=== PATIENT | male | born 1995 | race Caucasian/White ===

== ENCOUNTER 2021-02-18 08:06 | Emergency (ER) | payer OTHER, SELFPAY ==
[2021-02-18 08:15] VITALS: BP 149/87; PULSE 73; RESP 20; TEMP 36.7; O2SAT 100
--- NOTE | 2021-02-18 08:24 | ED.URI ---
HPI - URI/Sore Throat General Chief Complaint: Upper Respiratory Infection Stated Complaint: sore throat Time Seen by Provider: 02/18/21 08:34 Source: patient and RN notes reviewed Mode of arrival: ambulatory Limitations: no limitations History of Present Illness HPI Narrative: 26-year-old male presents with concern for sore throat, rhinorrhea, nasal congestion, intermittent cough that started yesterday. Reports a coworker had strep throat last week. He denies any known contact to a Covid positive patient. He denies shortness of breath, body aches, chills, sweats, fever, loss of sense of taste or smell. He denies any [id number] intervention. MD elicited complaint: sore throat Related Data Allergies Allergy/AdvReac Type Severity Reaction Status Date / Time No Known Allergies Allergy Verified 02/18/21 08:27 Review of Systems Review of Systems: Narrative: CONSTITUTIONAL: Denies malaise, chills, sweats, or fever. EYES: Denies visual changes, redness, or discharge. ENT: Reports rhinorrhea, congestion, otalgia and sore throat. CARDIOVASCULAR: Denies chest pain, palpitations, or edema. RESPIRATORY: Reports cough. Denies dyspnea. GASTROINTESTINAL: Denies abdominal pain, nausea, vomiting, diarrhea SKIN: Denies rash or itching. MUSCULOSKELETAL: Denies myalgia. NEUROLOGIC: Denies headache. All systems reviewed & are unremarkable except as noted in HPI and below PMFSH Comments At time of signature, agree with nursing past medical, surgical, social and family history. There is no relevant family history pertinent to the presenting complaint Exam Narrative: Exam Narrative: GENERAL: Well-appearing, well-nourished, and in no acute distress. HEAD: Normocephalic EYES: PERRLA, conjunctivae clear ENT: Nares clear, turbinates erythematous, clear discharge. Mucous membranes moist. TM pearly ferrara with dull light reflex bilaterally; no tragal tenderness. Oropharynx erythematous without lesions. Tonsils not enlarged and without exudate, tonsil stones noted. No drooling, no hoarseness, no trismus, uvula midline. NECK: Supple. No lymphadenopathy CHEST: Clear to auscultation, breath sounds equal. No wheezing, rhonchi, rales, or stridor. No respiratory distress, speaks in full sentences. HEART: Regular rate and rhythm. No murmur heard. SKIN: Warm, dry, no rash. NEURO: Alert and oriented x3. PSYCH: Normal mood and affect Course Course Emergency Course: Patient is aware of diagnosis, understands and agrees to treatment plan. Anticipatory guidance given. Patient agrees to follow-up as directed and is aware of reasons to seek care at the emergency department. Portions of this record may have been created with voice recognition software Vital Signs Vital signs: Vital Signs Temperature 98.1 F 02/18/21 08:15 Pulse Rate 73 02/18/21 08:15 Respiratory Rate 20 02/18/21 08:15 Blood Pressure 149/87 H 02/18/21 08:15 Pulse Oximetry 100 02/18/21 08:15 Temperature 98.1 F 02/18/21 08:15 Pulse Rate 73 02/18/21 08:15 Respiratory Rate 20 02/18/21 08:15 Blood Pressure 149/87 H 02/18/21 08:15 Pulse Oximetry 100 02/18/21 08:15 Reviewed. Pt has been instructed to follow up with his primary care provider within the next week regarding his elevated blood pressure today. MDM - URI/Sore Throat MDM Narrative Medical decision making narrative: Differential diagnosis considered: Noel virus, strep pharyngitis, allergic rhinitis, upper respiratory tract infection, sinusitis, rhinosinusitis, nasopharyngitis. viral pharyngitis, otitis media, otitis externa, pneumonia, bronchitis, viral cough syndrome, viral syndrome, and influenza. Exam findings show no acute concerns or changes; patient is non-toxic appearing and is in no distress. Patient is appropriate for outpatient treatment and follow-up. Lab Data Attestation: I reviewed the patient's lab results. Labs: Strep Screen Presumptive Negative
== END 2021-02-18 08:47 | disposition home or self-care (01) ==
PROVIDERS: Emergency Provider Nurse Practitioner; PCP Family Medicine
DX: J06.9 Acute upper respiratory infection, unspecified (principal)
CPT/HCPCS: 87081; 87880; 99213; G0463

== ENCOUNTER 2021-03-23 17:01 | Emergency (ER) | payer OTHER, SELFPAY ==
[2021-03-23 17:07] VITALS: BP 135/66; PULSE 85; RESP 16; TEMP 37.2; O2SAT 97
[2021-03-23 17:16] VITALS: BP 135/66; PULSE 85; RESP 16; TEMP 37.2; O2SAT 97
--- NOTE | 2021-03-23 17:59 | ED.GENADULT ---
HPI - General Adult General Chief complaint: Urogenital-Male Stated complaint: STD Test Time Seen by Provider: 03/23/21 17:59 Source: patient and RN notes reviewed Mode of arrival: ambulatory Limitations: no limitations History of Present Illness HPI narrative: 26 year old male who presents [facility] with complaints of girlfriend testing positive for Chlamydia and he is here to be tested and treated. He states that he has no symptoms of burning or pain with urination, no abdominal pain or any penile discharge. He states that since he has had unprotected sex with her he needs to be treated for chlamydia. complaint: testing for STD Related Data Allergies Allergy/AdvReac Type Severity Reaction Status Date / Time No Known Allergies Allergy Verified 03/23/21 17:15 Review of Systems Review of Systems: Narrative: CONSTITUTIONAL: Denies fever, chills, or sweats. EYES: Denies visual changes, redness, or discharge. ENT: Denies rhinorrhea, congestion, sore throat, or otalgia. CARDIOVASCULAR: Denies chest pain, palpitations, or edema. RESPIRATORY: Denies cough or dyspnea. GASTROINTESTINAL: Denies abdominal pain, nausea, vomiting, or diarrhea. GENITOURINARY: Denies dysuria or hematuria. SKIN: Denies rash or itching. MUSCULOSKELETAL: Denies back pain, joint pain, or myalgia. NEUROLOGIC: Denies headache, numbness, or weakness. PSYCHIATRIC: Denies anxiety or depression. All systems reviewed & are unremarkable except as noted in HPI and below PMFSH Past Medical History Medical History (Updated 03/23/21 @ 18:18 by Ann Marie Guevara NP) Fractured nose [place]-Schlatter's disease Surgical History Surgical History (Updated 03/27/21 @ 15:24 by Ann Marie Guevara NP) No history of previous surgery Family History Family History (Updated 03/23/21 @ 18:18 by Ann Marie Guevara NP) Other Diabetes mellitus Social History Social History (Updated 03/23/21 @ 18:19 by Ann Marie Guevara NP) Smoking packs per day: 0.5 Smoking cigarettes per day: 10.0 Years smoked: 15 Smoking pack-years: 7.50 Smoking status: Current every day smoker Tobacco type: cigarettes Alcohol intake: current Alcohol use details: social Substance use: current Substance use type: marijuana Living arrangements: with family Gender identity (if verbalized by the patient): Male Comments At time of signature, agree with nursing past medical, surgical, social and family history. There is no relevant family history pertinent to the presenting complaint Exam Narrative: Exam Narrative: GENERAL: Well-appearing, well-nourished, and in no acute distress. HEAD: Normocephalic, atraumatic. EYES: PERRLA and EOMI. ENT: Nares clear, no rhinorrhea or epistaxis. Mucous membranes moist. NECK: Supple.no lymphadenopathy CHEST: Clear to auscultation. No respiratory distress.SAO2 97% ON ROOM AIR HEART: Regular rate and rhythm. No murmur heard. Normal peripheral pulses. ABDOMEN: Soft, nontender, nondistended, normal active bowel sounds.denies any penile drainage or pain with urination. EXTREMITIES: Normal range of motion. No edema. SKIN: Warm, dry, no rash. NEURO: No focal deficits. Alert and oriented x3. Course Vital Signs Vital signs: Vital Signs Temperature 37.2 C 03/23/21 17:07 Pulse Rate 85 03/23/21 17:07 Respiratory Rate 16 03/23/21 17:07 Blood Pressure 135/66 03/23/21 17:07 Pulse Oximetry 97 03/23/21 17:07 Temperature 37.2 C 03/23/21 17:16 Pulse Rate 85 03/23/21 17:16 Respiratory Rate 16 03/23/21 17:16 Blood Pressure 135/66 03/23/21 17:16 Pulse Oximetry 97 03/23/21 17:16 Medical Decision Making MDM Narrative Medical decision making narrative: urine sent to be tested for GC and chlamydia and trichomoniasis Does no want treatment for GC or Trichomoniasis does not feel is necessary, treatment given for Chlamydia as requested.Is agreeable for further treatment if any testing comes back positive. D
== END 2021-03-23 18:20 | disposition home or self-care (01) ==
PROVIDERS: Emergency Provider Registered Nurse
DX: Z20.2 Contact with and (suspected) exposure to infections with a predominantly sexual mode of transmission (principal); F17.210 Nicotine dependence, cigarettes, uncomplicated; M92.529 Juvenile osteochondrosis of tibia tubercle, unspecified leg
CPT/HCPCS: 87491; 87591; 87661; 99213; G0463

== ENCOUNTER 2021-04-29 12:50 | Emergency (ER) | payer OTHER, SELFPAY ==
[2021-04-29 13:03] VITALS: BP 155/72; PULSE 69; RESP 18; TEMP 37.6; O2SAT 100
--- NOTE | 2021-04-29 13:46 | ED.DENTAL ---
HPI - Dental/Oral General Chief complaint: Dental/Oral Stated complaint: Toothache Time Seen by Provider: 04/29/21 13:46 Source: patient and RN notes reviewed Mode of arrival: ambulatory Limitations: no limitations History of Present Illness HPI Narrative: 26-year-old male presents with concern for right lower dental pain. Reports he has a broken tooth on the right lower side in the left lower side and the right side has began to hurt in the last 24 hours. He reports foul taste in his mouth. He denies fevers, body aches, difficulty breathing, difficulty swallowing. He reports he used salt water rinses. He does not have a dentist or dental insurance. Patient reports he is a cigarette smoker. MD Complaint: tooth pain Related Data Allergies Allergy/AdvReac Type Severity Reaction Status Date / Time No Known Allergies Allergy Verified 04/29/21 13:21 Review of Systems Review of Systems: CONSTITUTIONAL: Denies malaise, chills, sweats, or fever. EYES: Denies visual changes, redness, or discharge. ENT: Denies rhinorrhea, congestion, sinus pain, otalgia or sore throat. Reports right lower dental pain RESPIRATORY: Denies cough or dyspnea. SKIN: Denies rash or itching. MUSCULOSKELETAL: Denies myalgia. NEUROLOGIC: Denies numbness, weakness, or headache. All systems reviewed & are unremarkable except as noted in HPI and below PMFSH Past Medical History Medical History (Updated 04/29/21 @ 13:55 by Debbie Ramos NP) Fractured nose [place]-Schlatter's disease Surgical History Surgical History (Updated 03/27/21 @ 15:24 by Ann Marie Guevara NP) No history of previous surgery Family History Family History (Updated 03/23/21 @ 18:18 by Ann Marie Guevara NP) Other Diabetes mellitus Social History Social History (Updated 03/23/21 @ 18:19 by Ann Marie Guevara NP) Smoking packs per day: 0.5 Smoking cigarettes per day: 10.0 Years smoked: 15 Smoking pack-years: 7.50 Smoking status: Current every day smoker Tobacco type: cigarettes Alcohol intake: current Alcohol use details: social Substance use: current Substance use type: marijuana Gender identity (if verbalized by the patient): Male Comments At time of signature, agree with nursing past medical, surgical, social and family history. There is no relevant family history pertinent to the presenting complaint Exam Narrative: GENERAL: Well-appearing, well-nourished, and in no acute distress. HEAD: Normocephalic, atraumatic. EYES: PERRLA, conjunctivae clear ENT: Nares clears. Mucous membranes moist. Oropharynx without edema, erythema or lesions. Tonsils not enlarged and without exudate. Teeth 32, 17 broken. Erythema and edema surrounding tooth 32 with no periapical abscess noted NECK: Supple. CHEST: No respiratory distress. Speaks in full sentences. HEART: Regular rate and rhythm. SKIN: Warm, dry, no rash. NEURO: Alert and oriented x3. PSYCH: Normal mood and affect Course Course Emergency Course: Patient is aware of diagnosis, understands and agrees to treatment plan. Anticipatory guidance given. Patient agrees to follow-up as directed and is aware of reasons to seek care at the emergency department. Portions of this record may have been created with voice recognition software Vital Signs Vital signs: Vital Signs Temperature 99.6 F 04/29/21 13:03 Pulse Rate 69 04/29/21 13:03 Respiratory Rate 18 04/29/21 13:03 Blood Pressure 155/72 H 04/29/21 13:03 Pulse Oximetry 100 04/29/21 13:03 Temperature 99.6 F 04/29/21 13:03 Pulse Rate 69 04/29/21 13:03 Respiratory Rate 18 04/29/21 13:03 Blood Pressure 155/72 H 04/29/21 13:03 Pulse Oximetry 100 04/29/21 13:03 Reviewed. MDM - Dental/Oral MDM Narrative Medical decision making narrative: Patients pain and complaint coupled with physical findings are consistant with dentalgia. There are no focal signs of space occupying lesions that are compromising to the
== END 2021-04-29 14:05 | disposition home or self-care (01) ==
PROVIDERS: Emergency Provider Nurse Practitioner
DX: K08.89 Other specified disorders of teeth and supporting structures (principal); F17.210 Nicotine dependence, cigarettes, uncomplicated; M92.529 Juvenile osteochondrosis of tibia tubercle, unspecified leg
CPT/HCPCS: 99213; G0463

== ENCOUNTER 2021-05-04 12:10 | Emergency (ER) | payer OTHER, SELFPAY ==
[2021-05-04 12:19] VITALS: BP 143/79; PULSE 64; RESP 18; TEMP 37.1; O2SAT 99
[2021-05-04 14:01] VITALS: BP 141/81; PULSE 64; RESP 18; TEMP 36.3; O2SAT 100
--- NOTE | 2021-05-04 15:15 | ED.GENADULT ---
HPI - General Adult General Chief complaint: Unspecified Stated complaint: rx refill Time Seen by Provider: 05/04/21 14:08 Source: patient and RN notes reviewed Mode of arrival: ambulatory Limitations: no limitations History of Present Illness HPI narrative: Patient is a 26-year-old male who presents to emergency department for evaluation of medication refill of his propanolol patient had incidental finding of elevated blood pressure and notes that he has been off his medication since August he has a follow-up with a new primary care in the next month patient on arrival denies any other complaints or symptoms and would simply like to have his blood pressure medicine refilled Related Data Home Medications Medication Instructions Recorded Confirmed amoxicillin-pot clavulanate tablet 05/04/21 Allergies Allergy/AdvReac Type Severity Reaction Status Date / Time No Known Allergies Allergy Verified 05/04/21 14:03 Review of Systems Review of Systems: All systems reviewed & are unremarkable except as noted in HPI and below PMFSH Past Medical History Medical History Fractured nose [place]-Schlatter's disease Surgical History Surgical History No history of previous surgery Family History Family History (Updated 03/23/21 @ 18:18 by Ann Marie Guevara NP) Other Diabetes mellitus Social History Social History Smoking packs per day: 0.5 Smoking cigarettes per day: 10.0 Years smoked: 15 Smoking pack-years: 7.50 Smoking status: Current every day smoker Tobacco type: cigarettes Alcohol intake: current Alcohol use details: social Substance use: current Substance use type: marijuana Gender identity (if verbalized by the patient): Male Sexual Orientation (if Verbalized by the Patient): Straight or Heterosexual Exam Narrative: GENERAL: Well-appearing, well-nourished, and in no acute distress. HEAD: Normocephalic, atraumatic. EYES: PERRLA and EOMI. ENT: Nares clear, no rhinorrhea or epistaxis. Mucous membranes moist. CHEST: Clear to auscultation. No respiratory distress. No wheezes rales or rhonchi HEART: Regular rate and rhythm. No murmur heard. EXTREMITIES: Normal range of motion. No edema. SKIN: Warm, dry, no rash. NEURO: No focal deficits. Alert and oriented x3. Cranial nerves II through XII grossly intact PSYCH: Normal mood and affect. Course Course Emergency Course: Patient will have his medication refilled advised to follow with primary care given reasons to return felt appropriate for outpatient reevaluation ABCs and vital signs intact and stable Vital Signs Vital signs: Vital Signs Temperature 98.7 F 05/04/21 12:19 Pulse Rate 64 05/04/21 12:19 Respiratory Rate 18 05/04/21 12:19 Blood Pressure 143/79 H 05/04/21 12:19 Pulse Oximetry 99 05/04/21 12:19 Temperature 97.4 F L 05/04/21 14:01 Pulse Rate 64 05/04/21 14:01 Respiratory Rate 18 05/04/21 14:01 Blood Pressure 141/81 H 05/04/21 14:01 Pulse Oximetry 100 05/04/21 14:01 Medical Decision Making MDM Narrative Medical decision making narrative: Patient in the room in no distress aware of case findings treatment plan and diagnosis agreeing to follow-up as instructed or to return if symptoms worsen or concerns Vital Signs Vital Signs: Vital Signs Temperature 98.7 F 05/04/21 12:19 Pulse Rate 64 05/04/21 12:19 Respiratory Rate 18 05/04/21 12:19 Blood Pressure 143/79 H 05/04/21 12:19 Pulse Oximetry 99 05/04/21 12:19 Temperature 97.4 F L 05/04/21 14:01 Pulse Rate 64 05/04/21 14:01 Respiratory Rate 18 05/04/21 14:01 Blood Pressure 141/81 H 05/04/21 14:01 Pulse Oximetry 100 05/04/21 14:01 Discharge Plan Discharge Clinical Impression: Medication refill Patient Dispositio
== END 2021-05-04 15:40 | disposition home or self-care (01) ==
PROVIDERS: Emergency Provider Emergency Medicine
DX: I10 Essential (primary) hypertension (principal)
CPT/HCPCS: 99281

== ENCOUNTER 2023-04-08 11:26 | Emergency (ER) | payer BC, SELFPAY ==
[2023-04-08 11:34] VITALS: BP 129/79; PULSE 93; RESP 18; TEMP 36.8; O2SAT 99
--- NOTE | 2023-04-08 11:43 | ED.SKABFB ---
HPI - Skin/Abscess/Foreign Bdy General Chief complaint: Skin/Abscess/Foreign Body Stated complaint: Insect Bite/Right Leg Source: patient and RN notes reviewed History of Present Illness HPI narrative: 28 yo M presents to urgent care with complaints of a red, tender, area to his right lower leg x 2 days. Pt denies knowing where this area came from. Pt states he squeezed on it and had some clear drainage from it the other day. States yesterday, his calf had a larger area of redness, the size of his hand, but resolved on it's own. Pt also presenting with a small laceration to his right, index, finger that he obtained from a piece of sheet metal yesterday evening. Denies any fevers, chills, or other complaints. Related Data Home Medications Medication Instructions Recorded Confirmed cariprazine 1.5 mg capsule 1.5 mg PO DAILY 04/08/23 04/08/23 (Vraylar) escitalopram oxalate 20 mg tablet 20 mg PO DAILY 04/08/23 04/08/23 Allergies Allergy/AdvReac Type Severity Reaction Status Date / Time No Known Allergies Allergy Verified 05/04/21 14:03 Review of Systems Review of Systems: CONSTITUTIONAL: Denies fever, chills, or sweats. EYES: Denies visual changes, redness, or discharge. ENT: Denies otalgia and sore throat CARDIOVASCULAR: Denies chest pain, palpitations, or edema. RESPIRATORY: Denies cough or dyspnea. GASTROINTESTINAL: Denies abdominal pain, nausea, vomiting, or diarrhea. GENITOURINARY: Denies dysuria or hematuria. SKIN: redness and tenderness to right calf and laceration to right index finger MUSCULOSKELETAL: Denies back pain, joint pain, or myalgia. NEUROLOGIC: Denies headache, numbness, or weakness. Pertinent positives per HPI. [facility] Past Medical History Medical History Fractured nose [place]-Schlatter's disease Surgical History Surgical History No history of previous surgery Family History Family History (Updated 03/23/21 @ 18:18 by Ann Marie Guevara NP) Other Diabetes mellitus Social History Social History Smoking packs per day: 0.5 Smoking cigarettes per day: 10.0 Years smoked: 15 Smoking pack-years: 7.50 Smoking status: Current every day smoker Tobacco type: cigarettes Alcohol intake: current Alcohol use details: social Substance use: current Substance use type: marijuana Living arrangements: with family Gender identity (if verbalized by the patient): Male Sexual Orientation (if Verbalized by the Patient): Straight or Heterosexual Comments At the time of my signature, I reviewed and agree with the nursing past medical, surgical, social, and family history. There is no relevant family history pertinent to the patient complaint. Exam Narrative: GENERAL: This is a well-nourished, well-developed patient, in no apparent distress. HEAD: normocephalic, atraumatic. EYES: Sclera clear/white. Vision is grossly intact. EARS: External ears normal, auditory canals clear and without drainage. Hearing grossly intact. NOSE: External nose normal with no obvious nasal discharge, nares without redness, no rhinorrhea. THROAT: Mucous membranes moist, posterior pharynx clear. NECK: Neck supple, non-tender without lymphadenopathy, masses or thyromegaly. CARDIOVASCULAR: Regular rate RESPIRATORY: No respiratory distress SKIN: 2 cm area of erythrmia to right calf with centralized, dark, scab noted. no drainage. no induration. Pt's right index finger, volar side, with 1.5 cm, clean, linear, laceration; no surrounding erythema or drainage. NEURO: awake, alert, and oriented to person, place and time. There were no obvious focal neurologic abnormalities. EXTREMITIES: No clubbing, cyanosis, or edema. No joint tenderness, effusion, or edema noted. Course Course Level of Care: Express Care Visit Vital S
== END 2023-04-08 11:55 | disposition home or self-care (01) ==
PROVIDERS: Emergency Provider Nurse Practitioner Family; PCP Hospitalist
DX: L03.115 Cellulitis of right lower limb (principal); F17.210 Nicotine dependence, cigarettes, uncomplicated; F12.90 Cannabis use, unspecified, uncomplicated
CPT/HCPCS: 99213; G0463

== ENCOUNTER 2023-12-15 20:07 | Emergency (ER) | payer OTHER, MEDICAID, SELFPAY ==
[2023-12-15 20:11] VITALS: BP 180/100; PULSE 108; RESP 20; TEMP 36.4; O2SAT 99
--- NOTE | 2023-12-16 00:11 | ED.GENADULT ---
HPI - General Adult General Chief complaint: Skin/Abscess/Foreign Body Stated complaint: cyst on the butt cheek Time Seen by Provider: 12/15/23 22:04 History of Present Illness HPI narrative: This is a 28-year-old male presenting with a gluteal abscess. Has been there for 4 days. He was placed on antibiotics but it is not improving. No systemic signs of illness Related Data Home Medications Medication Instructions Recorded Confirmed cariprazine 1.5 mg capsule 1.5 mg PO DAILY 04/08/23 04/08/23 (Vraylar) escitalopram oxalate 20 mg tablet 20 mg PO DAILY 04/08/23 04/08/23 Allergies Allergy/AdvReac Type Severity Reaction Status Date / Time No Known Allergies Allergy Verified 05/04/21 14:03 [facility] Past Medical History Medical History Fractured nose [place]if[place]-Schlatter's disease Surgical History Surgical History No history of previous surgery Family History Family History Other Diabetes mellitus Social History Social History Smoking packs per day: 0.5 Smoking cigarettes per day: 10.0 Years smoked: 15 Smoking pack-years: 7.50 Smoking status: Current every day smoker Tobacco type: cigarettes Alcohol intake: current Alcohol use details: social Substance use: current Substance use type: marijuana Living arrangements: with family Gender identity (if verbalized by the patient): Male Sexual Orientation (if Verbalized by the Patient): Straight or Heterosexual Exam Narrative: APPEARANCE: No apparent distress. Head: atraumatic. EYES: EOMI, NOSE: Atraumatic NECK: Trachea midline RESPIRATORY: No increased rate of breathing CARDIOVASCULAR: RRR, ABDOMINAL: Non-distended MUSCULOSKELETAl: No obvious deformities NEURO: Alert. Moving 4/4 extremities SKIN:: fluctuant mass in the lower left gluteal cheek, no rectal involvement PSYCHIATRIC: Normal affect Course Vital Signs Vital signs: Vital Signs Temperature 97.6 F 12/15/23 20:11 Pulse Rate 108 H 12/15/23 20:11 Respiratory Rate 20 12/15/23 20:11 Blood Pressure 180/100 H 12/15/23 20:11 Pulse Oximetry 99 12/15/23 20:11 Oxygen Delivery Room Air 12/15/23 20:11 Temperature 97.6 F 12/15/23 20:11 Pulse Rate 108 H 12/15/23 20:11 Respiratory Rate 20 12/15/23 20:11 Blood Pressure 180/100 H 12/15/23 20:11 Pulse Oximetry 99 12/15/23 20:11 Oxygen Delivery Room Air 12/15/23 20:11 Procedures Abscess I/D other: Date of Incision: 12/15/23 Time of Incision: 00:13 Side (if applicable): left Local Anesthetic: lidocaine 1% and with epi Technique: incised with #11 blade and probed loculations Amount of fluid expressed (mL): 10 Irrigation: Yes Packing used?: none I&D Results: Pus and Blood Complications: pain Medical Decision Making MDM Narrative Medical decision making narrative: -Course: 28-year-old presenting with a gluteal abscess. No rectal involvement. Abscess was incised and drained. Patient placed on Bactrim and should continue his Keflex. Given return precautions. -DDX includes but is not limited to: Abscess, cellulitis -Co-morbidities complicating care: psychiatric illness -Procedures: complicated some drainage a abscess left gluteal cheek -Shared decision making / Disposition: discharged -RX Bactrim, Motrin Tylenol Vital Signs Vital Signs: Vital Signs Temperature 97.6 F 12/15/23 20:11 Pulse Rate 108 H 12/15/23 20:11 Respiratory Rate 20 12/15/23 20:11 Blood Pressure 180/100 H 12/15/23 20:11 Pulse Oximetry 99 12/15/23 20:11 Oxygen Delivery Room Air 12/15/23 20:11 Temperature 97.6 F 12/15/23 20:11 Pulse Rate 108 H 12/15/23 20:11 Respiratory Rate 20 12/15/23 20:11 B
[2023-12-16 01:03] VITALS: BP 156/106; PULSE 90; RESP 18; O2SAT 100
== END 2023-12-16 01:05 | disposition home or self-care (01) ==
PROVIDERS: Emergency Provider Emergency Medicine; PCP Hospitalist
DX: L02.31 Cutaneous abscess of buttock (principal); F17.210 Nicotine dependence, cigarettes, uncomplicated
CPT/HCPCS: 10060; 99283

== ENCOUNTER 2024-06-30 15:09 | Emergency (ER) | payer BC, SELFPAY ==
[2024-06-30 15:14] VITALS: BP 140/86; PULSE 106; RESP 20; TEMP 37.4; O2SAT 96
--- NOTE | 2024-06-30 15:29 | ED.SKABFB ---
HPI - Skin/Abscess/Foreign Bdy General Chief complaint: Skin/Abscess/Foreign Body Stated complaint: Skin Sore/Left Ankle Time Seen by Provider: 06/30/24 15:27 Source: patient, RN notes reviewed and old records reviewed Mode of arrival: ambulatory Limitations: no limitations History of Present Illness HPI narrative: 29 year old male [facility] with complaints of infected tattoo to his left lateral ankle for the past 2 days. Patient reports that it was a home done tattoo. Patient reports that he has applied cocunut oil and and triple antibiotic ointment to red irritated skin around and on tattoo.Patient reports that site is painful and he has had low grade fevers for which he has taken Advil.. Patient reports that he has had past staph infections. MD complaint: other (infected tattoo) Onset (ago): day(s) (2) Location: LLE (above left ankle) Severity scale (1-10): 5 Treatments prior to arrival: NSAID and other (triple antibiotic ointment and cocunut oil.) Related Data Home Medications Medication Instructions Recorded Confirmed cariprazine 3 mg capsule (Vraylar) mg 07/02/24 cariprazine 3 mg capsule (Vraylar) mg 07/02/24 haloperidol 2 mg tablet mg 07/02/24 Allergies Allergy/AdvReac Type Severity Reaction Status Date / Time No Known Allergies Allergy Verified 05/04/21 14:03 Review of Systems Review of Systems: CONSTITUTIONAL: Denies fever, chills, or sweats. CARDIOVASCULAR: Denies chest pain, palpitations, or edema. RESPIRATORY: Denies cough or dyspnea. GASTROINTESTINAL: Denies abdominal pain, nausea, vomiting SKIN: Reports redness and swelling. Denies purulent drainage, some vesicles noted in tattoo area with no drainage, no fluctuation of tissue noted, tattoo red and small area of surrounding redness with no acute warmth to tissue MUSCULOSKELETAL: Denies myalgia. NEUROLOGIC: Denies headache, numbness All systems reviewed & are unremarkable except as noted in HPI and below PMFSH Past Medical History Medical History (Updated 07/02/24 @ 13:53 by Ann Marie Guevara NP) Anxiety and depression Fractured nose Hypertension Winifred-Schlatter's disease Schizoaffective disorder Surgical History Surgical History No history of previous surgery Family History Family History Other Diabetes mellitus Social History Social History Smoking packs per day: 0.5 Smoking cigarettes per day: 10.0 Years smoked: 15 Smoking pack-years: 7.50 Smoking status: Current every day smoker Tobacco type: cigarettes Alcohol intake: current Alcohol use details: social Substance use: current Substance use type: marijuana Living arrangements: with family Gender identity (if verbalized by the patient): Male Sexual Orientation (if Verbalized by the Patient): Straight or Heterosexual Comments At time of signature, agree with nursing past medical, surgical, social and family history. There is no relevant family history pertinent to the presenting complaint Exam Narrative: GENERAL: Well-appearing, well-nourished, and in no acute distress. HEAD: Normocephalic, atraumatic. EYES: PERRLA and EOMI. ENT: Nares clear, no rhinorrhea or epistaxis. Mucous membranes moist. NECK: Supple. no lymphadenopathy CHEST: Clear to auscultation. No respiratory distress.SAO2 96% on room air HEART: Regular rate and rhythm. No murmur heard. Normal peripheral pulses. ABDOMEN: Soft, nontender, nondistended, normal active bowel sounds. EXTREMITIES: Normal range of motion. No edema. SKIN: Warm, dry. Erythema, induration, tenderness, warmth with area 3cm X 2cm with surrounding redness 0.5 cm,2 versicles noted inside area of tattoo tissue with no fluctuation of tissue no crepitus noted, no drainage NEURO: No focal deficits. Alert and oriented x3. Course Cour
== END 2024-06-30 15:49 | disposition home or self-care (01) ==
PROVIDERS: Emergency Provider Registered Nurse; PCP Hospitalist
DX: L03.116 Cellulitis of left lower limb (principal); I10 Essential (primary) hypertension; M92.529 Juvenile osteochondrosis of tibia tubercle, unspecified leg; F25.9 Schizoaffective disorder, unspecified; F17.210 Nicotine dependence, cigarettes, uncomplicated
CPT/HCPCS: 99213; G0463

== ENCOUNTER 2025-01-30 15:49 | Emergency (ER) | payer BC, SELFPAY ==
--- OUTSIDE RECORDS SUMMARY | 2025-01-30 15:51 | XMS_ITS | Patient Health Record ---
Author Organization [facility] Address [address] [place] [address] Care Team Providers Care Agency Legal Counsel Name Role Phone Graciela Garcia Primary Care Provider Byron Gary Unavailable [phone] Linnette Mcdaniel Unavailable [phone] Vanesa Joseph Unavailable [phone] Allergies No Known Allergies Results Component Value Reference Range Notes 12 Panel Urine Drug Screen Reviewed date:02/15/2024 08:36:25 AM Interpretation: Performing Lab: Notes/Report: THC POS LAINA NEG MOP (OPI) NEG AMP NEG MET NEG BAR NEG BZO NEG MDMA NEG MTD NEG OXY NEG PCP NEG BUP NEG Reason For Referral Reason Client is wanting in formation on rehab facilities that take [place] Medicaid outside of his living area Diagnosis 1 Methamphetamine abus e (F15.10) Diagnosis 2 Opioid use disorder (F11.99) Referral Organization [facility] Referring Provider First Name Graciela Referring Provider Last Name Jose Referring Provider Speciality Psychiatry Referred Provider Specialty Behavioral [facility] Clinical Notes Hank Tomlin 09:08:36 AM >HN PW contacted consumer regarding referral. Consumer is in agreement with referral. HN explained that any possible rehab facilities resources/services will be researched and provided upon receipt. Consumer voiced understanding., Hank Tomlin 02/22/2024 10:20:12 AM >Possible rehab/Medicaid facilities researched on behalf of consumer. Letter with several possible rehab facilities/resources(DRS-list of Rehabs that accept Medicaid in [place], [facility] and [facility] National helpline) mailed to consumer for available services. Case addressed and closed. Referral Priority Routine Medications Medication SIG (Take, Route, Frequency, Duration) Notes Start Date End Date Status buPROPion HCl ER (XL) 300 MG 1 tablet in the morning Orally Once a day for 30 days Active Haloperidol 2 MG 1 tablet at bedtime Orally Once a day for 30 days Active Vraylar 3 MG 1 capsule Orally Onc e a day for 30 days Active Social History Tobacco Use: Social History Observation Description Date Details (start date - stop date) Unknown Sex Assigned At : Social History Observation Description Sex Assigned At Male Dont use, Tobacco Use/Smoking Question Answer Notes Are you a current smoker Additional Findings: Tobacco User e-Cigarette PRAPARE Question Answer Notes Are you a refugee? No What country are you from? [place] Date Completed/Updated: 02/15/2024 What is your current housing situation? I have h ousing Are you worried about losing your housing? Yes What is the highest level of school that you have finished? High school diploma or GED What is your current work situation? Unemployed and seeking work In the past year, have you o r any family members you live with been unable to get any of the following when it was really needed? Check all that apply I do not have problems meeting my needs Has lack of transportation k ept you from medical appointments, meetings, work or from getting things needed for daily living? No How often do you see or talk to people that you care about and feel close to? (For example: talking to friends on the phone, visiting friends or family, going to anabaptist or club meetings) More than 5 times a week How stressed are you? Stress is when someone feels tense, nervous, anxious, or can\t sleep at night because their mind is troubled Somewhat In the past year have you sp ent more than 2 nights in a row in a [facility]cfp, nursing home, longterm center, or juvenile correctional facility? No Do you feel physically and e motionally safe where you currently live? Yes In the past year, have you b een afraid of your partner or ex-partner? No PRAPARE Score: 1 Tobacco Control (Standard) Question Answer Notes Tobacco use: Uses tobacco in other forms Additional Findings: Tobacco user e-cigarette Problems Problem Type SNOMED Code ICD Code Onset Dates Problem Status W/U Status Risk Notes Problem Tobacco user (836221191) Nicotine dependence, unspecified, uncomplicated (F17.200) Active confirmed Problem Generalized anxiety disorder (75758064) Generalized anxiety disorder (F41.1) Active confirmed Problem Mood disorder (64992116) Mood disorder (F39) Active confirmed likely schizoaffective disorder Problem History of psychiatric disorder (753984601) History of posttraumatic stress disorder (PTSD) (Z86.59) Active confirmed Problem Schizoaffective disorder (84542404) Schizoaffective disorder (F25.9) Active confirmed Problem 297968658 Methamphetamine abuse (F15.10) Active confirmed Problem 430384327 Obesity (BMI 30-39.9) (E66.9) Active confirmed Problem Opioid use disorder (9336238750) Opioid use disorder (F11.99) Active confirmed Vital Signs Heart Rate 104 /min 02/15/2024 Temperature 98.4 degrees Fahrenheit 02/15/2024 Respiratory Rate 16 /min 02/15/2024 Blood pressure diastolic 84 mm Hg 02/15/2024 Oximetry 97 % 02/15/2024 Height 69 in 02/15/2024 Blood pressure systolic 160 mm Hg 02/15/2024 Weight 235.0 lbs 02/15/2024 BMI 34.7 kg/m2 02/15/2024 Encounters Encounter Location Date Provider Diagnosis [address] [address] 02/08/2024 Graciela Garcia Opioid use disorder F11.99 ; Schizoaffective disorder F25.9 ; Methamphetamine abuse F15.10 ; Generalized anxiety disorder F41.1 and History of posttraumatic stress disorder (PTSD) Z86.[address] [place] [address] 02/15/2024 Vanesa Joseph Methamphetamine abus e F15.10 ; Schizoaffective disorder F25.9 ; Obesity (BMI 30-39.9) E66.9 ; Nicotine dependence, unspecified, uncomplicated F17.200 and Nutritional counseling Z71.[address] [place] [address] 02/15/2024 Linnette Mcdaniel [address] [place] [address] 03/21/2024 Graciela Sabblut Opioid use disorder F11.99 ; Schizoaffective disorder F25.9 ; Methamphetamine abuse F15.10 ; Generalized anxiety disorder F41.1 and History of posttraumatic stress disorder (PTSD) Z86.[address] [address] 04/25/2024 Graciela Sabblut Opioid use disorder F11.99 ; Schizoaffective disorder F25.9 ; Methamphetamine abuse F15.10 ; Generalized anxiety disorder F41.1 and History of posttraumatic stress disorder (PTSD) Z86.[address] [address] 05/23/2024 Graciela Sabblut Opioid use disorder F11.99 ; Schizoaffective disorder F25.9 ; Methamphetamine abuse F15.10 ; Generalized anxiety disorder F41.1 and History of posttraumatic stress disorder (PTSD) Z86.[address] [address] 03/16/2024 Graciela Sabblut Schizoaffective disorder F25.9 and Opioid use disorder F11.[address] [address] 06/20/2024 Graciela Sabblut Assessments Encounter Date Diagnosis (ICD Code) Assessment Notes Treatment Notes Treatment Clinical Notes Section Notes 02/08/2024 Opioid use disorder (ICD-10 - F11.99) R/O personality disorder with cluster B traits. 02/15/2024 Schizoaffective disorder (ICD-10 - F25.9) Crisis Intervention Team called and met patient in room. 02/15/2024 Methamphetamine abuse (ICD-10 - F15.10) 03/16/2024 Schizoaffective disorder (ICD-10 - F25.9) 03/21/2024 Opioid use disorder (ICD-10 - F11.99) R/O personality disorder with cluster B traits. 04/25/2024 Opioid use disorder (ICD-10 - F11.99) Recommend a combination of 12-step programs, outpatient programs, and psychotherapy to maintain recovery in the outpatient setting. R/O personality disorder with cluster B traits. 05/23/2024 Opioid use disorder (ICD-10 - F11.99) Recommend a combination of 12-step programs, outpatient programs, and psychotherapy to maintain recovery in the outpatient setting. R/O personality disorder with cluster B traits. 05/23/2024 Schizoaffective disorder (ICD-10 - F25.9) Adding small dose of haloperidol for AH and to help with sleep. Increasing bupropion to help wih depression and focus/concentrati on. R/O personality disorder with cluster B traits. 04/25/2024 Schizoaffective disorder (ICD-10 - F25.9) Adding small dose of haloperidol for AH and to help with sleep. Increasing bupropion to help wih depression and focus/concentrati on. R/O personality disorder with cluster B traits. 03/21/2024 Schizoaffective disorder (ICD-10 - F25.9) Client showing behaviors consistent with a manic episode demonstrated by paranoia, poor sleep, hyper-talkativ eness, grandiosity, racing thoughts, risk-taking behaviors and circumstantial ity, but is also actively using meth at this time. Client is encouraged to continue taking medications as prescribed. Vraylar increased from 1.5 mg daily to 3 mg daily. R/O personality disorder with cluster B traits. 03/16/2024 Opioid use disorder (ICD-10 - F11.99) 02/15/2024 Obesity (BMI 30-39.9) (ICD-10 - E66.9) 02/08/2024 Schizoaffective disorder (ICD-10 - F25.9) R/O personality disorder with cluster B traits. 02/08/2024 Methamphetamine abuse (ICD-10 - F15.10) R/O personality disorder with cluster B traits. 02/15/2024 Nicotine dependence, unspecified, uncomplicated (ICD-10 - F17.200) 03/21/2024 Methamphetamine abuse (ICD-10 - F15.10) R/O personality disorder with cluster B traits. 04/25/2024 Methamphetamine abuse (ICD-10 - F15.10) Recommend inpatient or outpatient treatment for methamphetmaine abuse. R/O personality disorder with cluster B traits. 05/23/2024 Methamphetamine abuse (ICD-10 - F15.10) Recommend inpatient or outpatient treatment for methamphetmaine abuse. R/O personality disorder with cluster B traits. 05/23/2024 Generalized anxiety disorder (ICD-10 - F41.1) Take all medications as prescribed. R/O personality disorder with cluster B traits. 04/25/2024 Generalized anxiety disorder (ICD-10 - F41.1) Take all medications as prescribed. R/O personality disorder with cluster B traits. 02/08/2024 Generalized anxiety disorder (ICD-10 - F41.1) R/O personality disorder with cluster B traits. 02/15/2024 Nutritional counseling (ICD-10 - Z71.3) 03/21/2024 Generalized anxiety disorder (ICD-10 - F41.1) R/O personality disorder with cluster B traits. 03/21/2024 History of posttraumatic stress disorder (PTSD) (ICD-10 - Z86.59) R/O personality disorder with cluster B traits. 02/08/2024 History of posttraumatic stress disorder (PTSD) (ICD-10 - Z86.59) R/O personality disorder with cluster B traits. 04/25/2024 History of posttraumatic stress disorder (PTSD) (ICD-10 - Z86.59) R/O personality disorder with cluster B traits. 05/23/2024 History of posttraumatic stress disorder (PTSD) (ICD-10 - Z86.59) R/O personality disorder with cluster B traits. 02/08/2024 Other Prescriptions being resent for third time. If client hasn't picked up and started medications at next visit, need to reevaluate treatment plan. May self-administer medications or be administered own oral medications per [facility] protocols. Provided informed consent with understanding of side effects, adverse effects, risks and benefits as well as alternative treatments as previously discussed and with the above recommended medications & other aspects of the treatment program. Agrees to return sooner if symptoms worsen or suicidal or homicidal ideations occur. R/O personality disorder with cluster B traits. 02/15/2024 Other 02/15/2024 Other Provided case management services to address social determinants of health needs and reduce barriers to health care services. 03/21/2024 Other May self-administer medications or be administered own oral medications per [facility] protocols. Provided informed consent with understanding of side effects, adverse effects, risks and benefits as well as alternative treatments as previously discussed and with the above recommended medications & other aspects of the treatment program. Agrees to return sooner if symptoms worsen or suicidal or homicidal ideations occur. R/O personality disorder with cluster B traits. 04/25/2024 Other May self-administer medications or be administered own oral medications per [facility] protocols. Provided informed consent with understanding of side effects, adverse effects, risks and benefits as well as alternative treatments as previously discussed and with the above recommended medications & other aspects of the treatment program. Agrees to return sooner if symptoms worsen or suicidal or homicidal ideations occur. R/O personality disorder with cluster B traits. 05/23/2024 Other May self-administer medications or be administered own oral medications per [facility] protocols. Provided informed consent with understanding of side effects, adverse effects, risks and benefits as well as alternative treatments as previously discussed and with the above recommended medications & other aspects of the treatment program. Agrees to return sooner if symptoms worsen or suicidal or homicidal ideations occur. R/O personality disorder with cluster B traits. Plan Of Treatment No Information Insurance Providers Payer Name Payer Address Payer Phone Subscriber Number Group Number Insured Name Patient Relationship to Insured Coverage Start Date Coverage End Date MEDICAID [address] [place] [address] [id number] Mary Byron Self - patient is the insured 2 [facility] [address] [place] [address] [id number] Byron Hernandez Self - patient is the insured 2 3 [employer] [address] [address] [id number] Mary Byron Self - patient is the insured 4 Medical (General) History Medical History History ICD Code schizoaffective disorder Surgical History Surgery Date(Month/Year)
--- OUTSIDE RECORDS SUMMARY | 2025-01-30 15:51 | XMS_ITS | Clinical Summary ---
Author Organization [address] Address [address] [place] [address] [place] [address] Care Team Providers Care Catalyst Recovery Operator Name Role Phone No, Physician Primary Care Provider [phone] Allergies No known active allergies Medications albuterol HFA (PROVENTIL HFA,VENTOLIN HFA,PROAIR HFA) 90 mcg/actuation inhalerIndicati ons:Bronchitis with acute wheezing Inhale 2 puffs every 6 (six) hours as needed for wheezing 3 each 4 4 Active buPROPion XL (WELLBUTRIN XL) 150 mg 24 hr tablet Take 1 tablet (150 mg total) by mouth every morning 90 tablet 4 4 Active sulfamethoxazol e-trimethoprim (BACTRIM DS) 800-160 mg per tablet Take 1 tablet by mouth every 12 (twelve) hours 4 Active ARIPiprazole (ABILIFY) 10 mg tablet Take 1 tablet (10 mg total) by mouth daily 4 Active mupirocin (BACTROBAN) 2 % ointment Apply topically 3 (three) times a day 22 g 4 Active Hospital, Clinic, or Other Facility Administered Medication Ordered Dose Route Frequency Start Date End Date Status ipratropium-albuteroL (DUO-NEB) 0.5-2.5 mg/3 mL nebulizer solution 3 mLIndications:Chronic Obstructive Pulmonary Disease with Bronchospasms 3 mL nebu 4 times daily (home health care respiratory therapist) 11/24/2023 Active Active Problems Problem Noted Date Diagnosed Date Opioid use, unspecified with unspecified opioid-induced disorder 12/15/2023 Perineal abscess 12/15/2023 Assessment & Plan (12/29/2023 2:33 PM CDT): Skin infection, unkonwn etiology possible garden variety skin infection vs anal fistula (less likely) Continue with oral antibiotics and follow up one week. Assessment & Plan (12/19/2023 3:27 PM CDT): Area has reduced in size following I&D at [facility] 12/15/2023. Complete antibiotics as discussed. Wound care as discussed. Now feels like multiple abscesses. Referral to general surgeon Assessment & Plan (12/15/2023 5:00 PM CDT): Discussed findings with patient. Start on cephalexin 500 mg b.i.d. times 10 days. Discussed use of Sitz baths; they can be obtained at the pharmacy. Warm compresses or heating pad to area. Tylenol or ibuprofen p.r.n. follow-up if symptoms are not resolving Methamphetamine use disorder, mild 11/24/2023 Assessment & Plan (12/08/2023 3:42 PM CDT): Patient reports chronic use of methamphetamines; recently detox; was in rehab, but left due to worsening mental illness Patient reports no use of methamphetamines in 5 days Encouraged continued cessation; will start bupropion 150 mg Hepatic steatosis 10/18/2023 Chronic hepatitis C without hepatic coma 023 Assessment & Plan (10/28/2023 11:21 AM DRAPERY INSTALLER): Stable, completed treatment, continues to follow with GI for monitoring and will recheck RNA for cure RLS (restless legs syndrome) 10/06/2022 Assessment & Plan (10/06/2022 11:16 AM DRAPERY INSTALLER): Patient reports restless legs, worse while on alprazolam Feels need to move legs, impacts daily activity Will start gabapentin 100 mg t.i.d.; will check ferritin levels today Hepatitis C antibody positive in blood Assessment & Plan (10/06/2022 11:15 AM DRAPERY INSTALLER): Positive hepatitis-C antibody; most recent RNA was indeterminate; recheck hepatitis-C RNA PCR quantitative today Assessment & Plan (05/11/2022 3:09 PM CDT): Antibody positive but RNA neg. Will get our usual blood work and ttreat if he actually has the virus Assessment & Plan (03/09/2022 3:47 PM CDT): Degenerative type cannot be assessed, however patient did have RNA and blood Patient reports he is receiving had a and hep B vaccines in boosters Will refer to GI for treatment Assessment & Plan (12/24/2021 10:13 AM CDT): Reports he had room recent rapid screening testing for in Infectious Diseases sexually transmitted infections; negative all, except positive for hepatitis C antibody Today will run confirmation testing, as well as checking for hepatitis a, hepatitis-B and HIV to determine if patient is able to be treated for hepatitis-C reviewed recent labs, patient has mild elevation of ALT, but no other significant liver inflammation Cluster headaches 12/24/2021 Assessment & Plan (04/19/2023 4:01 PM CDT): No recent headaches at this time Continue to monitor Assessment & Plan (03/09/2022 3:48 PM CDT): Patient reports decreased number of headaches recently Discontinue verapamil; continue sumatriptan 50 mg p.r.n. for severe headaches Assessment & Plan (12/24/2021 10:14 AM CDT): Patient reports regular cluster headaches; may occur several times per week, are nearly daily Given frequency, will start verapamil 240 mg nightly, patient to take every day for prophylactic treatment; sumatriptan 50 mg as needed for severe headaches Class 2 obesity due to exces s calories without serious comorbidity with body mass index (BMI) of 39.0 to 39.9 in adult 06/10/2021 Assessment & Plan (12/19/2023 3:23 PM CDT): BMI 39.14, encourage weight loss Assessment & Plan (12/15/2023 4:59 PM CDT): BMI 38.72, He was counseled on the importance of obtaining a healthy weight and the risks of obesity. Weight loss recommended. Assessment & Plan (04/19/2023 4:01 PM CDT): Stable, no significant changes to wait Encouraged continued work towards weight loss through dietary changes and regular physical activity Assessment & Plan (03/09/2022 3:47 PM CDT): , generally well controlled Encouraged patient continue work on dietary changes, including reduce caloric intake through dietary changes, and increased activity to at least 30 minutes is moderate intensity exercise daily Assessment & Plan (09/11/2021 4:14 PM DRAPERY INSTALLER): Worsening, patient has continued weight gain Encouraged patient to engage in caloric limited diet as well as regular exercise to achieve weight loss Seborrheic dermatitis 06/10/2021 Assessment & Plan (06/10/2021 3:38 PM CDT): Patient has generalized symptoms of flaking and erythema along hairline Topical steroid prescribed Encouraged patient to continue to use antifungal shampoos including Selsun blue and head and shoulders Will continue to monitor for response to therapy Autism spectrum disorder 05/12/2018 Major depressive disorder, s otis episode, severe with anxious distress 05/12/2018 Assessment & Plan (12/08/2023 3:41 PM CDT): Not well controlled; patient has worsening of depression; currently on no medications Patient is has history of depression; does not feel suicidal; no thoughts of hurting self or others However reports worsening symptoms, possible hallucinations as patient reports since of living and a simulation Will refer to Psychiatry Start Abilify 5 mg daily; Wellbutrin 150 mg daily Assessment & Plan (10/28/2023 11:21 AM DRAPERY INSTALLER): Elevated PHQ 9; discussed with patient today; patient reports multiple stressors, difficulty with finding work; currently homeless, patient has jail, currently living with a cousin in couch surfing with family and friends Discussed with patient prior medications, he does not want to restart any medications at this time Will continue to monitor, if no improvement then would recommend re-evaluating medications are adjusting medications Assessment & Plan (04/19/2023 4:01 PM CDT): Has been well controlled for patient Follows with [facility]; good control with current medications Continue Abilify 10 mg daily, Lexapro 20 mg daily, Vraylar 1.5 mg daily Assessment & Plan (03/09/2022 3:47 PM CDT): Stable, well controlled; continue to monitor Assessment & Plan (09/11/2021 4:13 PM DRAPERY INSTALLER): Stable, well controlled; mostly feels bored; patient has no impact to work, but has generalized anhedonia, no interested in starting on game in which he had recently spent 300 dollars on Prozac to 20 mg daily Assessment & Plan (07/28/2021 4:42 PM CDT): Not well controlled, has worsening at apathy which is impacting patient's relationship with friends and family members Will discontinue sertraline; start Prozac 20 mg daily Continue hydroxyzine 25 mg as needed for panic attacks Referral to Psychiatry given difficult to manage symptoms Moderate tobacco use disorder 10/27/2017 Assessment & Plan (10/28/2023 11:21 AM DRAPERY INSTALLER): Stable, patient reports is not currently using cigarettes, vaping Encouraged continued work towards nicotine cessation Assessment & Plan (04/19/2023 4:00 PM CDT): Vapes nicotine products Encouraged continued work on tapering concentration of vape contents Assessment & Plan (09/11/2021 4:13 PM DRAPERY INSTALLER): Stable, not well controlled; patient reports no desire to quit at this time Assessment & Plan (06/10/2021 3:38 PM CDT): Stable, not well controlled, encourage cessation in order to reduce long-term health effects tobacco use Chronic fatigue syndrome 09/24/2016 Overview (01/06/2017): Chronic fatigue Ingrowing great toenail 09/24/2016 Overview (01/06/2017): Ingrown right big toenail Abdominal pain 04/27/2016 Overview (01/06/2017): Continuous severe abdominal pain Assessment & Plan (07/28/2021 4:42 PM CDT): Primarily located in right groin; subcutaneous mass noted; patient is under changes in size Will get ultrasound Tonsillitis 03/23/2016 Overview (01/06/2017): Tonsillitis Acute streptococcal pharyngitis 03/23/2016 Overview (01/06/2017): Strep throat Anxiety 08/14/2015 Overview (01/06/2017): Anxiety Assessment & Plan (04/19/2023 4:01 PM CDT): Managed with depression; continue medications as above Assessment & Plan (06/10/2021 3:38 PM CDT): Patient reports he continues to have generalized anxiety, mostly with episodes of panic attacks Will start sertraline today, continue hydroxyzine 25 mg p.r.n. for anxiety attacks Immunizations Immunization Administration Dates Next Due DTP / HiB 06/21/1995 Hep A, Adult 12/22/2021 Hep B Vaccine 12/22/2021 Hep B, Adolescent or Pediatric 06/21/1995 Influenza, Unspecified 11/24/2023(Deferr ed: Patient Refused),09/05/2023(Deferred: Patient Refused),06/26/2023(Deferred: Patient Refused),04/01/2023(Deferred: Patient Refused),12/24/2021(Deferred: Patient Refused),09/26/2021(Deferred: Patient Refused),09/26/2021(Deferred: Patient Refused),09/09/2021(Deferred: Patient Refused),07/22/2021(Deferred: Patient Refused),06/10/2021(Deferred: Patient Refused),09/26/2020(Deferred: Patient Refused),09/26/2020(Deferred: Patient Refused),09/26/2020(Deferred: Patient Refused),09/26/2020(Deferred: Patient Refused),09/26/2020(Deferred: Patient Refused),04/12/2018(Deferred: Patient Refused),03/09/2018(Deferred: Patient Refused),10/27/2017(Deferred: Patient Refused),10/19/2017(Deferred: Patient Refused),09/27/2017(Deferred: Patient Refused),09/27/2016(Deferred: Patient Refused),09/27/2016(Deferred: Patient Refused),09/26/2016(Deferred: Patient Refused) MMR 06/21/1995 OPV 06/21/1995 Surgical History Surgery Date Site/Laterality Comments TYMPANOSTOMY TUBE PLACEMENT Medical History Medical History Date Comments Anxiety disorder Anxiety Hepatitis C Family History Medical History Relation Name Comments No Known Problems Brother 1 No Known Problems Brother 2 No Known Problems Brother 3 No Known Problems Sister Relation Name Status Comments Brother 1 Alive Brother 2 Alive Brother 3 Alive Father Alive Mother Alive Sister Alive Social History Tobacco Use Types Packs/Day Years Used Date Smoking Tobacco: Every Day Cigarettes Smokeless Tobacco: Current Tobacco Cessation:Ready to Q uit: Not Asked; Counseling Given: Not Answered Comments:Smoking History Packs/day: 3 Cigarettes Alcohol Use Standard Drinks/Week Comments No 0 (1 standard drink = 0.6 oz pur e alcohol) AUDIT-C Answer Date Recorded Q1: How often do you have a drink containing alc ohol? Monthly or less 05/09/2023 Average Number of Drinks Not on file 023 Frequency of Binge Drinking Not on file 04/26 PHQ-2 Answer Date Recorded PHQ-2 Total Score (If total score is 3 or more points, staff should administer the PHQ-9) 2 12/08/2023 PHQ-9 Answer Date Recorded PHQ-9 Total Score 12 12/08/2023 Personal Safety Answer Date Recorded Have you ever been in or are you currently in a harmful physical or emotional relationship or is someone making you feel afraid or unsafe? Denies 07/06/2024 Sex and Gender Information Value Date Recorded Sex Assigned at Not on file Legal Sex Male 9:28 AM DRAPERY INSTALLER Gender Identity Not on file Sexual Orientation Not on file Obstetrics History Last Filed Vital Signs Vital Sign Reading Time Taken Comments Blood Pressure 154/95 07/06/2024 11:30 AM CDT Pulse 97 07/06/2024 11:30 AM CDT Temperature 36.9 C (98.4 F) 07/06/2024 11:30 AM CDT Respiratory Rate 16 07/06/2024 11:30 AM CDT Oxygen Saturation 95% 07/06/2024 11:30 AM CDT Inhaled Oxygen Concentration - - Weight 104.3 kg (230 lb) 07/06/2024 11:30 AM CDT Height 172.7 cm (5' 8 ) 07/06/2024 11:30 AM CDT Body Mass Index 34.97 07/06/2024 11:30 AM CDT Plan of Treatment Health Maintenance Due Date Last Done Comments DTaP/Tdap/Td Vaccine (2 - Tdap) 2005 06/21/1995 Varicella Vaccines (1 of 2 - 13+ 2-dose series) 2007 Regular Well Visit/Exam 18-64 01/28/2012 Pneumococcal vaccine <65 (1 of 2 - PCV) 2013 Depression Screening 12/07/2024 12/08/2023, 12/08/2023, 10/05/2023, Additional history exists Influenza Vaccine (Season Ended) 2025 Hepatitis C Screening Completed 10/18/2023 , 10/18/2023, 10/18/2023, Additional history exists HPV Vaccines Aged Out No longer eligi ble based on patient's age to complete this topic Procedures Procedure Name Priority Date/Time Associated Diagnosis Comments HEPATITIS C RNA, QUANTITATIVE, PCR Routine 10/18/2023 2:16 PM DRAPERY INSTALLER Chronic hepatitis C without hepatic coma (HCC) from Last 3 Months or Most Recently Relevant to Health Maintenance Results * Hepatitis C (HCV) RNA PCR, quantitative Blood (10/18/2023 2:16 PM DRAPERY INSTALLER) HCV RNA result Not Detected MORGAN RUBYELSI MICHAEL (DILSHAD) Comment: The quantifiable range of this assay is 15 IU/mL to 100,000,000 IU/mL (1.18 log IU/mL to 8.00 log IU/mL). Testing was performed by the SYED 6800 HCV Test ([employer] Testing performed at [facility] Current Interpretive Data was last revised on 2021 Testing performed by: [facility], [address] [place]., [address] Blood 10/18/2023 2:16 PM DRAPERY INSTALLER 10/18/2023 8:34 PM DRAPERY INSTALLER Jhoan Busby NP LAB MICROBIOLOGY - GENERAL ORDERABLES Final Result DEYANIRA MICHAEL (DILSHAD) 1 [facility] Department [place] [address] from Last 3 Months or Most Recently Relevant to Health Maintenance Insurance [employer]PA [employer] ACCESS CHOICE ANTH ACCESS CHOICE Member Subscriber Plan / Payer (Ef fective 2021-) Name:Byron Hernandez Relation to Subscriber:Self Name:Byron Hernandez Payer ID:[id number] (NAIC) Type:[employer] Address: [address] [facility] Care Teams Catalyst Recovery Operator Relationship Specialty Start Date End Date No, Physician PCP - General 07/06/24
--- OUTSIDE RECORDS SUMMARY | 2025-01-30 15:51 | XMS_ITS ---
Author Organization [facility] Address [address] [place] [address] Care Team Providers Care Hogshead Press Operator Name Role Phone Graciela Garcia Primary Care Provider [phone] Byron Gary Unavailable [phone] REASON FOR VISIT MH Social History Sex Assigned At : Social History Observation Description Sex Assigned At Male Encounters Encounter Location Date Provider Diagnosis [facility] [address] [place] [address] [place] [address] 07/11/2024 Byron Gary Plan Of Treatment No Information Progress Notes * Ariane HERNANDEZsDOB: 4 (30 yo M)Acc No.[id number]:07/11/2024 UNLOCKED PROGRESS NOTE Patient: Byron AMIN Provider: CARLOTTA Carter, AGPCNP-BC :1995 A ge:29 Y S ex:Male Date:07/11/2024 Address:[address] [place], [place] [id number] Pcp:Graciela Garcia Subjective: * Chief Complaints: * 1 . MH. * Medical History: Objective: * Vitals: Assessment: Plan: * Treatment: * * Electronic signature of Cali Gary APRN, [id number] on 01/30/2025 at 03:51 PM CDT Sign off status: Pending * Provider: CARLOTTA Carter, AGPCNP-BC Date: Generated for Printing/Faxing/eTransmitting on: 0 01/30/2025 03:51 PM CDT
--- OUTSIDE RECORDS SUMMARY | 2025-01-30 15:51 | XMS_ITS | Encounter Summary ---
Author Organization [facility] Address [address] [place] [address] Care Team Providers Care School Guard Name Role Phone Rubin Rascon MD Primary Care Provider [phone] No, Physician Primary Care Provider [phone] Encounter Details Date Type Department Care Team (Late st Contact Info) Description 09/30/2021 Telephone [facility] [address] [place] [id number] Wale Harris, RT Social History Tobacco Use Types Packs/Day Years Used Date Smoking Tobacco: Every Day Cigarettes Smokeless Tobacco: Current Comments:Smoking History Pac ks/day: 3 Cigarettes Alcohol Use Standard Drinks/Week Comments No 0 (1 standard drink = 0.6 oz pur e alcohol) AUDIT-C Answer Date Recorded Q1: How often do you have a drink containing alc ohol? 2-4 times a month 09/09/2021 Q2: How many drinks containi ng alcohol do you have on a typical day when you are drinking? 1 or 2 09/09/2021 Q3: How often do you have si x or more drinks on one occasion? Never 09/09/2021 PHQ-2 Answer Date Recorded PHQ-2 Total Score (If total score is 3 or more points, staff should administer the PHQ-9) 0 09/09/2021 Sex and Gender Information Value Date Recorded Sex Assigned at Not on file Legal Sex Male 9:28 AM BATTERY CHECKER Gender Identity Not on file Sexual Orientation Not on file documented as of this encounter Plan of Treatment Not on file documented as of this encounter Visit Diagnoses Not on filedocumented in this encounter Additional Health Concerns Infection Onset Date Last Indicated Resolved Time COVID: Suspected 11/24/2023 11/24/2023 11/24/2023 10:02 AM BATTERY CHECKER documented as of this encounter Care Teams School Guard Relationship Specialty Start Date End Date Rubin Rascon MD [address] [place] [address] PCP - General Family Medicine 05/04/21 07/05/24 No, Physician PCP - General 07/06/24 documented as of this encounter
--- OUTSIDE RECORDS SUMMARY | 2025-01-30 15:51 | XMS_ITS | Referral Summary ---
Author Organization [address] Address [address] [place] [address] [place] [address] Care Team Providers Care Searchlight Operator Name Role Phone No, Physician Primary Care Provider [phone] Allergies No known active allergies Medications albuterol [...] Bronchospasms 3 mL nebu 4 times daily (responder) 11/24/2023 Active Active Problems Problem Noted Date [...] has reduced in size following I&D at [facility] 12/15/2023. Complete antibiotics as discussed. Wound care [...] 023 Assessment & Plan (10/28/2023 11:21 AM TREATMENT SPECIALIST): Stable, completed treatment, continues to follow with GI for monitoring and will recheck RNA for cure RLS (restless legs syndrome) 10/06/2022 Assessment & Plan (10/06/2022 11:16 AM TREATMENT SPECIALIST): Patient reports restless legs, worse while on alprazolam Feels need to move legs, impacts daily activity Will start gabapentin 100 mg t.i.d.; will check ferritin levels today Hepatitis C antibody positive in blood Assessment & Plan (10/06/2022 11:15 AM TREATMENT SPECIALIST): Positive hepatitis-C antibody; most recent RNA was [...] daily Assessment & Plan (09/11/2021 4:14 PM TREATMENT SPECIALIST): Worsening, patient has continued weight gain Encouraged [...] daily Assessment & Plan (10/28/2023 11:21 AM TREATMENT SPECIALIST): Elevated PHQ 9; discussed with patient today; patient reports multiple stressors, difficulty with finding work; currently homeless, patient has senior living, currently living with a cousin in couch surfing with family and friends Discussed with patient prior medications, he does not want to restart any medications at this time Will continue to monitor, if no improvement then would recommend re-evaluating medications are adjusting medications Assessment & Plan (04/19/2023 4:01 PM CDT): Has been well controlled for patient Follows with [facility]; good control with current medications Continue Abilify 10 mg daily, Lexapro 20 mg daily, Vraylar 1.5 mg daily Assessment & Plan (03/09/2022 3:47 PM CDT): Stable, well controlled; continue to monitor Assessment & Plan (09/11/2021 4:13 PM TREATMENT SPECIALIST): Stable, well controlled; mostly feels bored; patient [...] 10/27/2017 Assessment & Plan (10/28/2023 11:21 AM TREATMENT SPECIALIST): Stable, patient reports is not currently using cigarettes, vaping Encouraged continued work towards nicotine cessation Assessment & Plan (04/19/2023 4:00 PM CDT): Vapes nicotine products Encouraged continued work on tapering concentration of vape contents Assessment & Plan (09/11/2021 4:13 PM TREATMENT SPECIALIST): Stable, not well controlled; patient reports no [...] Refused),09/26/2016(Deferred: Patient Refused) MMR 06/21/1995 OPV 06/21/1995 Social History Tobacco Use Types Packs/Day Years [...] on file Legal Sex Male 9:28 AM TREATMENT SPECIALIST Gender Identity Not on file Sexual Orientation Not on file Last Filed Vital Signs Vital Sign Reading [...] 07/06/2024 11:30 AM CDT Plan of Treatment Not on file Procedures Procedure Name Priority Date/Time Associated Diagnosis Comments HEPATITIS C RNA, QUANTITATIVE, PCR Routine 10/18/2023 2:16 PM TREATMENT SPECIALIST Chronic hepatitis C without hepatic coma (HCC) from Last 3 Months or Most Recently Relevant to Health Maintenance Results * Hepatitis C (HCV) RNA PCR, quantitative Blood (10/18/2023 2:16 PM TREATMENT SPECIALIST) HCV RNA result Not Detected MORGAN JACQUES) Comment: The quantifiable range of this assay is 15 IU/mL to 100,000,000 IU/mL (1.18 log IU/mL to 8.00 log IU/mL). Testing was performed by the SYED 6800 HCV Test ([employer] Testing performed at [facility] Current Interpretive Data was last revised on 2021 Testing performed by: [facility], [address] [facility], [place]., [address] Blood 10/18/2023 2:16 PM TREATMENT SPECIALIST 10/18/2023 8:34 PM TREATMENT SPECIALIST us Jhoan Busby MEDICAL INSURANCE CODER LAB MICROBIOLOGY - GENERAL ORDERABLES Final Result DEYANIRA RODRIGUEZ (DILSHAD) [address] [facility] [place] [address] from Last 3 Months or Most Recently Relevant to Health Maintenance Insurance IDPA [employer] ACCESS CHOICE ANTHEM ACCESS CHOICE Member Subscriber Plan / Payer (Ef fective 2021-Present) Name:Byron Hernandez Relation to Subscriber:Self Name:Byron Hernandez Payer ID:[id number] (NAIC) Type:[employer] Address: [address] [facility] Care Teams Searchlight Operator Relationship Specialty Start Date End Date No, Physician PCP - General 07/06/24
--- OUTSIDE RECORDS SUMMARY | 2025-01-30 15:52 | XMS_ITS | Clinical Summary ---
Author Organization [facility] Address [address] [place] [address] Phone Care Team Providers Care Runstitching Machine Operator Name Role Phone Génesis Pickering APRN, LIQUEFIER Primary Care Provi reginald Active Problems Problem Noted Date Diagnosed Date Major depressive disorder, s otis episode, severe with anxious distress 05/12/2018 Generalized anxiety disorder 05/12/2018 Autism spectrum disorder 05/12/2018 Social History Tobacco Use Types Packs/Day Years Used Date Smoking Tobacco: Former Cigarettes Smokeless Tobacco: Never Alcohol Use Standard Drinks/Week Comments Yes 0 (1 standard drink = 0.6 oz pure alcohol) drink maybe 1 X year but a lot when I do Sexually Active Control Partners Comments Not Currently Female Sex and Gender Information Value Date Recorded Sex Assigned at Not on file Legal Sex Male 10:57 PM CDT Gender Identity Not on file Sexual Orientation Not on file Plan of Treatment Health Maintenance Due Date Last Done Comments Hepatitis C Virus (HCV) Screening 1994 TdaP Immunization 1994 Hepatitis B Immunization (2 of 3 - 3-dose series) 07/19/1995 06/21/1995 Influenza Immunization (#1) 2024 SARS-COV-2 Immunization ( season) 2024 Respiratory Syncytial Virus (RSV) Immunization (Adult) (1 - 1-dose 75+ series) 2069 DTaP/Tdap/Td Immunization Discontinued 06/21/1995 Meningococcal Immunization (ACWY) Aged Out No longer eligible based on patient's age to complete this topic Pneumococcal Immunization Combined Aged Out No longer eligible b ased on patient's age to complete this topic Rotavirus Immunization Aged Out No lo nger eligible based on patient's age to complete this topic Insurance [facility] Care Teams Runstitching Machine Operator Relationship Specialty Start Date End Date Génesis Pickering, [place] LINE ATTENDANT, LIQUEFIER PCP - General Certified Nurse Practitioner 04/14/18
--- OUTSIDE RECORDS SUMMARY | 2025-01-30 15:52 | XMS_ITS ---
Author Organization [facility] Address [address] [place] [address] Care Team Providers Care Farmworker Poultry Name Role Phone Graciela Garcia Primary Care Provider [phone] REASON FOR VISIT 1 Month Psych F/U [...] day for 30 days Active Social History Sex Assigned At : Social History Observation Description Sex Assigned At Male Encounters Encounter Location Date Provider Diagnosis [address] [address] 06/20/2024 Graciela Garcia Plan Of Treatment No Information Progress Notes * Ariane HERNANDEZsDOB: 4 (30 yo M)Acc No.[id number]:06/20/2024 UNLOCKED PROGRESS NOTE Patient: Byron AMIN Provider: Yohan Garcia, TAN, BINDERY ASSISTANT, PMHNP-BC :1995 A ge:29 Y S ex:Male Date:06/20/2024 Address[address] [id number] Check In:11:25 AM DIE BAKER Subjective: * Chief Complaints: * 1 . [...] * Electronic signature of Katty Wilkins , [id number] on 01/30/2025 at 03:51 PM CDT Sign off status: Pending * Provider: Yohan Garcia DNP, BINDERY ASSISTANT, PMHNP- Date: 0 06/20/2024 Generated for Printing/Faxing/eTransmitting on: 01/30/2025 03:51 PM CDT
--- OUTSIDE RECORDS SUMMARY | 2025-01-30 15:52 | XMS_ITS | Clinical Summary ---
Author Organization [facility] Address [address] [place] [address] Care Team Providers Care Sales Stock Associate Name Role Phone None, Provider MD Primary Care Provider Unavaila ble Allergies No known active allergies Medications ARIPiprazole (ABILIFY) 10 MG tablet 09/14/2022 Active albuterol sulfate HFA 108 (90 Base) MCG/ACT inhaler Inhale 2 puffs into the lungs every 6 (six) hours as needed for Wheezing. 6.7 g 09/19/2024 Active Active Problems No known active problems Family History Relation Status Comments Father Alive Mother Alive Social History Tobacco Use Types Packs/Day Years Used Date Smoking Tobacco: Former Cigarettes Q uit: 2021 Smokeless Tobacco: Never Tobacco Cessation:Counseling Given: Not Answered Alcohol Use Standard Drinks/Week Comments Yes 0 (1 standard drink = 0.6 oz pur e alcohol) RARE USE Sex and Gender Information Value Date Recorded Sex Assigned at Not on file Legal Sex Male 12:26 PM CDT Gender Identity Not on file Sexual Orientation Not on file Last Filed Vital Signs Vital Sign Reading Time Taken Comments Blood Pressure 146/93 09/19/2024 10:13 PM SUPERVISOR BINDERY Pulse 82 09/19/2024 10:13 PM SUPERVISOR BINDERY Temperature 36.9 C (98.4 F) 09/19/2024 7:59 PM SUPERVISOR BINDERY Respiratory Rate 20 09/19/2024 10:13 PM SUPERVISOR BINDERY Oxygen Saturation 96% 09/19/2024 10:13 PM SUPERVISOR BINDERY Inhaled Oxygen Concentration - - Weight 116.8 kg (257 lb 8 oz) 09/19/2024 7:59 PM SUPERVISOR BINDERY Height 177.8 cm (5' 10 ) 09/19/2024 7:59 PM SUPERVISOR BINDERY Body Mass Index 36.95 09/19/2024 7:59 PM SUPERVISOR BINDERY Plan of Treatment Health Maintenance Due Date Last Done Comments Annual Physical 1997 Hepatitis C 01/28/2012 DTaP, Tdap and Td Vaccines ( 1 - Tdap) 2013 06/21/1995 Hepatitis B Vaccines (3 of 3 - 3-dose series) 02/16/2022 12/22/2021, 06/21/1995 COVID-19 Vaccine (1 - 2023-2 5 season) 2024 HPV Vaccines Aged Out No longer eligi ble based on patient's age to complete this topic Meningococcal B Vaccine Aged Out No l onger eligible based on patient's age to complete this topic Meningococcal Vaccine Aged Out No stuart jaqueline eligible based on patient's age to complete this topic Pneumococcal Vaccine: Pediatrics (0 to 5 Years) and At-Risk Patients (6 to 49 Years) Aged Out No longer eligible b ased on patient's age to complete this topic RSV Immunizations Under 20 Months Aged Out No longer eligible b ased on patient's age to complete this topic Insurance Care Teams Sales Stock Associate Relationship Specialty Start Date End Date None, Provider, PCP - General 02/23/21
[2025-01-30 16:04] VITALS: BP 154/94; PULSE 93; RESP 16; TEMP 37.1; O2SAT 99
--- NOTE | 2025-01-30 16:26 | ED_ITS ---
HPI - Male Genitourinary General Chief complaint: Urogenital-Male Stated complaint: std testing Time Seen by Provider: 01/30/25 16:10 Source: patient and RN notes reviewed Mode of arrival: ambulatory Limitations: no limitations History of Present Illness HPI Narrative: 30-year-old male presents Express Care complaining of STD testing. Patient said her he was recently treated for chlamydia because his girlfriend had it. Patient said he you history went to an urgent care down in [facility] where he was tested and was contact until he tested positive for mycoplasma genitalium. Patient finished a course of doxycycline and another antibiotic and unsure of the other antibiotic. Patient states that it was to treat chlamydia and mycoplasma genitalium. Patient was asymptomatic prior to treatment. Patient co ntinues to have no symptoms. Patient denies any urethral swelling or pain, painful ejaculation, penile discharge, or any other symptoms. Patient denies any urinary symptoms. Patient would like retested and re-treated for mycoplasma genitalium. Patient was treated approximately 1 month ago. Related Data Home Medications ?Medication ?Instructions ?Recorded ?Confirmed ?Last Taken ?Type No Home Medications 01/30/25 01/30/25 Unknown History Allergies Allergy/AdvReac Type Severity Reaction Status Date / Time No Known Allergies Allergy Verified 01/30/25 16:07 Review of Systems Review of Systems: CONSTITUTIONAL: Denies fever, chills, body aches, or sweats. EYES: Denies visual changes, redness, or discharge. ENT: Denies rhinorrhea, congestion, sore throat, or otalgia. CARDIOVASCULAR: Denies chest pain, palpitations, or edema. RESPIRATORY: Denies cough or dyspnea. GASTROINTESTINAL: Denies abdominal pain, nausea, vomiting, or diarrhea. GENITOURINARY: Denies dysuria, painful ejaculation, penile discharge, testicular pain, testicular swelling, or hematuria. SKIN: Denies rash or itching. MUSCULOSKELETAL: Denies back pain, joint pain, or myalgia. NEUROLOGIC: Denies headache, numbness, or weakness. PSYCHIATRIC: Denies anxiety or depression. All other systems reviewed are negative, except as documented in HPI. [facility] Past Medical History Medical History Schizoaffective disorder Anxiety and depression Hypertension Fractured nose [place]-Schlatter's disease Surgical History Surgical History No history of previous surgery Family History Family History Other Diabetes mellitus Social History Social History Smoking packs per day: 0.5 Smoking cigarettes per day: 10.0 Years smoked: 15 Smoking pack-years: 7.50 Smoking status: Current every day smoker Tobacco type: cigarettes Alcohol intake: current Alcohol use details: social Substance use: current Substance use type: marijuana Living arrangements: with family Gender identity (if verbalized by the patient): Male Sexual Orientation (if Verbalized by the Patient): Straight or Heterosexual Comments At the time of my signature, I reviewed and agree with the nursing past medical, surgical, social, and family history. There is no relevant family history pertinent to the patient complaint. Exam Narrative: GENERAL: This is a well-nourished, well-developed adult, in no apparent distress. They are non ill-appearing, nontoxic appearing. HEAD: normocephalic, atraumatic. EYES: Sclera clear/white. Conjunctiva normal. Vision is grossly intact. Extraocular movements intact EARS: External ears normal, . Hearing grossly intact. NOSE: External nose normal THROAT: Mucous membranes moist NECK: Normal range of motion CARDIOVASCULAR: Regular rate and rhythm RESPIRATORY: Respiratory rate normal, respiratory effort nonlabored, no respiratory distress GENITOURINARY: Declined genital exam SKIN: warm, Dry, intact with no suspicious lesions or rash, good texture and turgor. NEURO: awake, alert, and oriented to person, place and time. There were no obvious focal neurologic abnormalities. EXTREMITIES: No joint tenderness, effusion, or edema noted. Course Course Emergency Course: Portions of this record may have been created with voice recognition software Level of Care: Express Care Visit Vital Signs Vital signs: Vital Signs Temperature 98.7 F 01/30/25 16:04 Pulse Rate 93 01/30/25 16:04 Respiratory Rate 16 01/30/25 16:04 Blood Pressure 154/94 H 01/30/25 16:04 Pulse Oximetry 99 01/30/25 16:04 Oxygen Delivery Room Air 01/30/25 16:04 Temperature 98.7 F 01/30/25 16:04 Pulse Rate 93 01/30/25 16:04 Respiratory Rate 16 01/30/25 16:04 Blood Pressure 154/94 H 01/30/25 16:04 Pulse Oximetry 99 01/30/25 16:04 Oxygen Delivery Room Air 01/30/25 16:04 Reviewed MDM - Male Genitourinary MDM Narrative Medical decision making narrative: Explained to patient that we are unable to test for mycoplasma genitalium. Offered to retest him for chlamydia, gonorrhea, Trichomonas and he declined. Offered a genital exam and patient declined. Advised patient to go to [facility] for further STD testing and a verbally told him where it was located. Patient requesting to be re-treated for mycoplasma genitalium. The however patient has already been treated for this condition and took the antibiotics as directed. Patient is currently asymptomatic. Advised patient he needs to be retested prior to additional antibiotic treatment. After this discussion with patient, the patient left prior to receiving anticipatory guidance and formal discharge instructions. Differential Diagnosis Differential diagnosis: Likely urinary tract infection, urethritis and other (mycoplasma genitalium) Critical Care Time Critical Care Time Critical Care Time: No Discharge Plan Discharge Clinical Impression: Encounter for assessment of STD exposure Patient Disposition: Elopement After Seen by Prov Patient Language: Swedish Prescriptions: No Action No Home Medications Follow-up/Referrals: PHYSICIAN,WEDDING PHOTOGRAPHER [Primary Care Provider] - Time of Disposition: 16:15
== END 2025-01-30 16:15 | disposition left against medical advice (07) ==
LOC: EXPBETH 15:51
DX: Z11.3 Encounter for screening for infections with a predominantly sexual mode of transmission (principal); F17.210 Nicotine dependence, cigarettes, uncomplicated; F12.90 Cannabis use, unspecified, uncomplicated; I10 Essential (primary) hypertension
CPT/HCPCS: 99211; G0463

== ENCOUNTER 2025-05-18 10:41 | Emergency (ER) | payer SELFPAY ==
--- OUTSIDE RECORDS SUMMARY | 2024-06-20 06:20 | XMS_ITS ---
Author Organization [facility] Address [address] [place] [address] Care Team Providers Care Engineering Supervisor Name Role Phone Graciela Garcia Primary Care [...] Male Encounters Encounter Location Date Provider Diagnosis [address] [place] [address] 06/20/2024 Graciela Garcia Plan Of Treatment No Information Progress Notes * Cali HERNANDEZconniesDOB: 4 (30 yo M)Acc No.[id number]:06/20/2024 UNLOCKED PROGRESS NOTE Patient: Byron AMIN Provider: Yohan Garcia DNP, PERFORMANCE TEST ENGINEER, PMHNP-BC :1995 A ge:29 Y S ex:Male Date:06/20/2024 [id number] 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 [...] * Electronic signature of Katty Wilkins , [id number] on 05/18/2025 at 10:54 AM CDT Sign off status: Pending * Provider: Yohan Garcia DNP, PERFORMANCE TEST ENGINEER, PMHNP-BC Date: 06/20/2024 Generated for Printing/Faxing/eTransmitting on: 05/18/2025 10:54 AM CDT
--- OUTSIDE RECORDS SUMMARY | 2024-07-11 10:40 | XMS_ITS ---
Author Organization [facility] Address [address] [place] [address] Care Team Providers Care Cordwood Cutter Name Role Phone Graciela Garcia Primary Care Provider Byron Gary Unavailable [phone] REASON FOR VISIT MH Social History Sex Assigned At : Social History Observation Description Sex Assigned At Male Encounters Encounter Location Date Provider Diagnosis [facility] [address] [place] [address] [place] [address] 07/11/2024 Byron Gary Plan Of Treatment No Information Progress Notes * Ariane HERNANDEZsDOB: 4 (30 yo M)Acc No.[id number]:07/11/2024 UNLOCKED PROGRESS NOTE Patient: Byron AMIN Provider: CARLOTTA Carter, AGPCNP-BC :1995 A ge:29 Y S ex:Male Date:07/11/2024 Address:[address] [place], [place] [address] Pcp:Graciela Garcia Subjective: * Chief Complaints: * 1 . MH. * Medical History: Objective: * Vitals: Assessment: Plan: * Treatment: * * Electronic signature of Cali Gary APRN, [id number] on 05/18/2025 at 10:54 AM CDT Sign off status: Pending * Provider: CARLOTTA Carter, AGPCNP-BC Date: Generated for Printing/Faxing/eTransmitting on: 0 05/18/2025 10:54 AM CDT
--- OUTSIDE RECORDS SUMMARY | 2025-05-18 10:54 | XMS_ITS | Encounter Summary ---
Author Organization [facility] Address [address] [place] [address] Care Team Providers Care Colorer Machine Name Role Phone Rubin Rascon MD Primary Care Provider [phone] No, Physician Primary Care Provider [phone] Encounter Details Date Type Department Care Team (Late st Contact Info) Description 09/30/2021 Telephone [facility] [address] [place] [id number] Wale Harris, RT Social History Tobacco Use [...] on file Legal Sex Male 9:28 AM SERVER ASSISTANT Gender Identity Not on file Sexual Orientation Not on file documented as of this encounter Plan of Treatment Not on file documented as of this encounter Visit Diagnoses Not on filedocumented in this encounter Additional Health Concerns Infection Onset Date Last Indicated Resolved Time COVID: Suspected 11/24/2023 11/24/2023 11/24/2023 10:02 AM SERVER ASSISTANT documented as of this encounter Care Teams Colorer Machine Relationship Specialty Start Date End Date Rubin Rascon MD [address] [place] [address] PCP - General Family Medicine 05/04/21 07/05/24 No, Physician PCP - General 07/06/24 documented as of this encounter
--- OUTSIDE RECORDS SUMMARY | 2025-05-18 10:54 | XMS_ITS | Clinical Summary ---
Author Organization [facility] Address [address] [place] [address] Care Team Providers Care Supervisor Paper Testing Name Role Phone None, Provider MD Primary [...] Comments Blood Pressure 146/93 09/19/2024 10:13 PM GEMOLOGIST Pulse 82 09/19/2024 10:13 PM GEMOLOGIST Temperature 36.9 C (98.4 F) 09/19/2024 7:59 PM GEMOLOGIST Respiratory Rate 20 09/19/2024 10:13 PM GEMOLOGIST Oxygen Saturation 96% 09/19/2024 10:13 PM GEMOLOGIST Inhaled Oxygen Concentration - - Weight 116.8 kg (257 lb 8 oz) 09/19/2024 7:59 PM GEMOLOGIST Height 177.8 cm (5' 10) 09/19/2024 7:59 PM GEMOLOGIST Body Mass Index 36.95 09/19/2024 7:59 PM GEMOLOGIST Plan of Treatment Health Maintenance Due Date Last Done Comments Annual Physical 1997 Hepatitis C 01/28/2012 DTaP, Tdap and Td Vaccines ( 1 - Tdap) 2013 06/21/1995 HPV Vaccines (1 - 3-dose SCD M series) 2021 Hepatitis B Vaccines (3 of 3 - 3-dose series) 02/16/2022 12/22/2021, 06/21/1995 COVID-19 Vaccine ( - 2023-2 5 season) 2024 Meningococcal B Vaccine Aged Out No l [...] to complete this topic Insurance Care Teams Supervisor Paper Testing Relationship Specialty Start Date End Date None, Provider, PCP - General 02/23/21
--- OUTSIDE RECORDS SUMMARY | 2025-05-18 10:54 | XMS_ITS | Clinical Summary ---
Author Organization [facility] Address [address] [place] [address] Phone Care Team Providers Care Car Detailer Name Role Phone Génesis Pickering APRN, CITY COUNCIL MEMBER Primary Care Provi reginald Active Problems Problem [...] of 3 - 3-dose series) 07/19/1995 06/21/1995 Human Papillomavirus (HPV) Immunization (1 - 3-dose SCDM series) 2021 SARS-COV-2 Immunization ( season) 2024 Influenza Immunization (#1) 2025 Respiratory Syncytial Virus (RSV) Immunization (Adult) (1 - 1-dose 75+ series) 2069 DTaP/Tdap/Td Immunization Discontinued 06/21/1995 Meningococcal Immunization (ACWY) Aged Out No longer eligible based on patient's age to complete this topic Pneumococcal Immunization Combined Aged Out No longer eligible based on patient's age to complete this topic Rotavirus Immunization Aged Out No lo nger eligible based on patient's age to complete this topic Insurance Care Teams Car Detailer Relationship Specialty Start Date End Date Génesis Pickering, RESOURCE PARAPROFESSIONAL, CITY COUNCIL MEMBER PCP - General Certified Nurse Practitioner 04/14/18
--- OUTSIDE RECORDS SUMMARY | 2025-05-18 10:54 | XMS_ITS | Clinical Summary ---
Author Organization [facility] Address [address] [place] [address] Phone Care Team Providers Care Follow Up Clerk Name Role Phone Unavailable Primary Care Provider Unavailabl e Allergies No known active allergies Medications albuterol sulfate HFA 90 mcg/actuation aerosol inhaler Take 2 Puffs by inhalation every 6 hours as needed. 4 Active cetirizine (ZyrTEC) 10 mg tablet Take 1 Tablet (10 mg) by mouth daily. 30 Tablet 5 Active Social History Tobacco Use Types Packs/Day Years Used Date Smoking Tobacco: Never Smokeless Tobacco: Never Tobacco Cessation:Counseling Given: Not Answered Alcohol Use Standard Drinks/Week Comments Never 0 (1 standard drink = 0.6 oz pur e alcohol) Feeling Safe Answer Date Recorded Are you in a relationship wi th someone who hurts you emotionally and/or physically? No 02/11/2025 Sex and Gender Information Value Date Recorded Sex Assigned at Not on file Legal Sex Male 8:17 AM CDT Gender Identity Not on file Sexual Orientation Not on file Last Filed Vital Signs Vital Sign Reading Time Taken Comments Blood Pressure 134/81 02/11/2025 8:28 AM CDT Pulse 77 02/11/2025 8:28 AM CDT Temperature 36.5 C (97.7 F) 02/11/2025 8:28 AM CDT Respiratory Rate 18 02/11/2025 8:28 AM CDT Oxygen Saturation 96% 02/11/2025 8:28 AM CDT Inhaled Oxygen Concentration - - Weight 122.5 kg (270 lb) 02/11/2025 8:28 AM CDT Height 172.7 cm (5' 8) 02/11/2025 8:28 AM CDT Body Mass Index 41.05 02/11/2025 8:28 AM CDT Plan of Treatment Health Maintenance Due Date Last Done Comments HPV VACCINES (1 - Male 3-dose series) 2009 DTAP/TDAP/TD VACCINES (2 - Tdap) 2013 06/21/19 95 HEPATITIS B VACCINES (2 of 3 - 3-dose series) 01/19/2022 12/22/2021, 06/21/1995 INFLUENZA VACCINE (#1) 2025 Insurance [facility] [place] SU[place] [id number]
--- OUTSIDE RECORDS SUMMARY | 2025-05-18 10:54 | XMS_ITS | Patient Health Record ---
Author Organization [facility] Address [address] [place] [address] Care Team Providers Care Stage Director Name Role Phone Graciela Garcia Primary Care Provider GaryByron Unavailable [phone] Allergies No Known Allergies Reason For Referral No Information Medications Medication SIG (Take, Route, Frequency, Duration) Notes Start Date End Date Status buPROPion HCl ER (XL) 300 MG 1 tablet in the morning Orally Once a day; Duration: 30 days Active Haloperidol 2 MG 1 tablet at bedtime Orally Once a day; Duration: 30 days Active Vraylar 3 MG 1 capsule Orally Onc e a day; Duration: 30 days Active Social History Tobacco Use: [...] phone, visiting friends or family, going to judaism or club meetings) More than 5 times a week How stressed are you? Stress is when someone feels tense, nervous, anxious, or can\t sleep at night because their mind is troubled Somewhat In the past year have you sp ent more than 2 nights in a row in a alf, fdc, senior living center, or juvenile correctional facility? No Do [...] W/U Status Risk Notes Problem Tobacco user (322189566) Nicotine dependence, unspecified, uncomplicated (F17.200) Active confirmed Problem Generalized anxiety disorder (53917492) Generalized anxiety disorder (F41.1) Active confirmed Problem Mood disorder (05805652) Mood disorder (F39) Active confirmed likely schizoaffective disorder Problem History of psychiatric disorder (589272916) History of posttraumatic stress disorder (PTSD) (Z86.59) Active confirmed Problem Schizoaffective disorder (65609953) Schizoaffective disorder (F25.9) Active confirmed Problem Methamphetamine abuse (646615917) Methamphetamine abuse (F15.10) Active confirmed Problem Obesity (010408458) Obesity (BMI 30-39.9) (E66.9) Active confirmed Problem Opioid use disorder (3588645195) Opioid use disorder (F11.99) Active confirmed Encounters Encounter Location Date Provider Diagnosis [address] [place] [address] 05/23/2024 Graciela Garcia Opioid use disorder F11.99 ; Schizoaffective disorder F25.9 ; Methamphetamine abuse F15.10 ; Generalized anxiety disorder F41.1 and History of posttraumatic stress disorder (PTSD) Z86.[address] [place] [address] 06/20/2024 Graciela Garcia Assessments Encounter Date Diagnosis (ICD Code) Assessment Notes Treatment Notes Treatment Clinical Notes Section Notes 05/23/2024 Opioid use disorder (ICD-10 - F11.99) Recommend a combination of 12-step programs, outpatient programs, and psychotherapy to maintain recovery in the outpatient setting. R/O personality disorder with cluster B traits. 05/23/2024 Schizoaffective disorder (ICD-10 - F25.9) Adding small dose of haloperidol for AH and to help with sleep. Increasing bupropion to help wih depression and focus/concentratio n. R/O personality disorder with cluster B traits. [...] or be administered own oral medications per [facility] protocols. Provided informed consent with understanding of [...] Coverage End Date MEDICAID [address] [place] [address] [id number] Byron Hernandez Self - patient is the insured 2 [facility] [address] [place] [address] [id number] Byron Hernandez Self - patient is the insured 2 3 MEDICAID [employer] [address] [address] [id number] Mary Byron Self - patient is the insured 4 Medical (General) History Medical History History ICD Code schizoaffective disorder Surgical History Surgery Date(Month/Year)
[2025-05-18 11:00] VITALS: BP 151/82; PULSE 73; RESP 20; TEMP 36.6; O2SAT 99
--- NOTE | 2025-05-18 11:32 | ED.URI ---
HPI - URI/Sore Throat General Chief Complaint: Urogenital-Male Stated Complaint: covid and std testing Time Seen by Provider: 05/18/25 11:34 Source: patient and RN notes reviewed Mode of arrival: ambulatory Limitations: no limitations History of Present Illness HPI Narrative: 30-year-old male presents with multiple complaints. He reports for 1 week he has had cough, chest tightness, sore throat, fever, sweats. Reports he is also concern for STI, he has had penile discharge. He has been taking tzdd-cqs-[id number] cough medicine. MD elicited complaint: cough, sore throat and nasal congestion Related Data Allergies Allergy/AdvReac Type Severity Reaction Status Date / Time No Known Allergies Allergy Verified 05/18/25 11:12 Review of Systems Review of Systems: CONSTITUTIONAL: Reports malaise, sweats, or fever. EYES: Denies visual changes, redness, or discharge. ENT: Reports rhinorrhea, congestion, and sore throat. CARDIOVASCULAR: Denies chest pain, palpitations, or edema. RESPIRATORY: Reports cough and chest tightness. Denies dyspnea. GASTROINTESTINAL: Denies abdominal pain, nausea, vomiting, diarrhea : Reports penile discharge SKIN: Denies rash or itching. MUSCULOSKELETAL: Denies myalgia. NEUROLOGIC: Denies headache. All systems reviewed & are unremarkable except as noted in HPI and below PMFSH Past Medical History Medical History Schizoaffective disorder Anxiety and depression Hypertension Fractured nose [place]-Schlatter's disease Surgical History Surgical History No history of previous surgery Family History Family History Other Diabetes mellitus Social History Social History Smoking packs per day: 0.5 Smoking cigarettes per day: 10.0 Years smoked: 15 Smoking pack-years: 7.50 Smoking status: Current every day smoker Tobacco type: cigarettes Alcohol intake: current Alcohol use details: social Substance use: current Substance use type: marijuana Living arrangements: with family Gender identity (if verbalized by the patient): Male Sexual Orientation (if Verbalized by the Patient): Straight or Heterosexual Comments At time of signature, agree with nursing past medical, surgical, social and family history. There is no relevant family history pertinent to the presenting complaint Exam Narrative: GENERAL: Nontoxic-appearing, well-nourished, and in no acute distress. HEAD: Normocephalic EYES: PERRLA, conjunctivae clear ENT: Nares clear, turbinates edematous and erythematous, clear discharge. Mucous membranes moist. TM pearly ferrara with dull light reflex bilaterally; no tragal tenderness. Oropharynx not erythematous without lesions. Tonsils not enlarged and without exudate, no drooling, no hoarseness, no trismus, uvula midline. NECK: Supple. No lymphadenopathy CHEST: Clear to auscultation, breath sounds equal. No wheezing, rhonchi, rales, or stridor. No respiratory distress, speaks in full sentences. HEART: Regular rate and rhythm. No murmur heard. SKIN: Warm, dry, no rash. NEURO: Alert and oriented x3. PSYCH: Normal mood and affect Course Course Emergency Course: Patient is aware of diagnosis, understands and agrees to treatment plan. Anticipatory guidance given. Patient agrees to follow-up as directed and is aware of reasons to seek care at the emergency department. Portions of this record may have been created with voice recognition software Level of Care: Express Care Visit Vital Signs Vital signs: Vital Signs Temperature 98 F 05/18/25 11:00 Pulse Rate 73 05/18/25 11:00 Respiratory Rate 20 05/18/25 11:00 Blood Pressure 151/82 H 05/18/25 11:00 Pulse Oximetry 99 05/18/25 11:00 Oxygen Delivery Room Air 05/18/25 11:00 Temperature 98 F 05/18/25 11:00 Pulse Rate 73 05/18/25 11:00 Respiratory Rate 20 05/18/25 11:00 Blood Pressure 151/82 H 05/18/25 11:00 Pulse Oximetry 99 05/18/25 11:00 Oxygen Delivery Room Air 05/18/25 11:00 Reviewed. MDM - URI/Sore Throat MDM Narrative Medical decision making narrative: Differential diagnosis considered: Noel virus, strep pharyngitis, allergic rhinitis, upper respiratory tract infection, sinusitis, rhinosinusitis, nasopharyngitis. viral pharyngitis, otitis media, otitis externa, pneumonia, bronchitis, viral cough syndrome, viral syndrome, and influenza. Exam findings show no acute concerns or changes; patient is non-toxic appearing and is in no distress. Patient is appropriate for outpatient treatment and follow-up. Lab Data Attestation: I reviewed the patient's lab results. Critical Care Time Critical Care Time Critical Care Time: No Discharge Plan Discharge Clinical Impression: Upper respiratory infection, Screening examination for STI Patient Disposition: Home Condition: Stable Instructions: Antibiotic Form, Sexually Transmitted Diseases (ED), Upper Respiratory Infection (ED) Additional Instructions: And STD: You have been tested for potential gonorrhea, chlamydia, and trichomoniasis today. You have received antibiotics to treat gonorrhea today, a prescription has been called into your pharmacy to treat chlamydia and trichomoniasis. You will receive a phone call in 2-3 days with the results of today's testing. It is very important that you avoid unprotected intercourse during treatment and for 7 days AFTER TREATMENT is complete and until your partner(s) have been treated. Please encourage your partner(s) to seek testing and treatment. When you have been exposed to sexually transmitted infections, it is important that you seek comprehensive testing, since we do not provide testing for all sexually transmitted infections. Some infections can have no symptoms, but cause serious health problems. Contact your health care provider or report to the emergency department if: You have genital swelling or pain, or unusual bleeding. You have joint pain, rash, swollen lymph nodes or night sweats. You are severe abdominal pain. You have a fever. Symptoms do not go away or they get worse even after treatment. You have bleeding or pain during sex. Upper respiratory infection: Viral illness may last between 7-21 days; antibiotics do not cure viral illness and are NOT recommended at this time. Recommend antihistamine such as Benadryl at night time and Zyrtec or Mona during the day Cough syrup may cause drowsiness; avoid driving or take it at night time. Use inhaler as needed for cough, wheezing, shortness of breath or chest tightness. Also, recommend symptomatic treatment includes: rest, fluids, and increase humidity of the air at home. Recommend Acetaminophen as directed on the bottle to reduce fever, pain, headache. Avoid smoking/second-hand smoke. Please schedule a follow-up visit with your personal physician for further evaluation and treatment within 3-5days. Including recheck and discussion of your blood pressure. If your symptoms persist, change or worsen significantly before you can contact your personal physician then please, without delay, go to the emergency department for further evaluation. Patient Language: Greek Prescriptions: New metronidazole 500 mg tablet 2,000 mg PO ONCE Qty: 4 0RF doxycycline monohydrate 100 mg tablet 100 mg PO BID 7 Days Qty: 14 0RF Follow-up/Referrals: PHYSICIAN,ELEVATOR MECHANIC [Primary Care Provider, Internal Medicine] Stand Alone Forms: Work/School Release IP Time of Disposition: 11:42
[2025-05-18 11:34] LABS: EDCOVIDSCREEN Negative (Negative)
[2025-05-18 11:34] LABS: EDINFLUASCREEN Negative (Negative); EDINFLUBSCREEN Negative (Negative); EDSTREPNEGPOS1 Negative (Negative)
[2025-05-18] MEDS: cefTRIAXone 500 MG, LIDOCAINE 1% LOCAL INJ 1 ML IM (11:45)
[2025-05-18 19:26] LABS: Trichomonas Vag PCR NOT DETECTED (NOT DETECTE)
== END 2025-05-18 12:07 | disposition home or self-care (01) ==
PROVIDERS: Emergency Provider Nurse Practitioner
DX: J06.9 Acute upper respiratory infection, unspecified (principal); Z11.3 Encounter for screening for infections with a predominantly sexual mode of transmission; Z20.822 Contact with and (suspected) exposure to COVID-19; I10 Essential (primary) hypertension; F17.210 Nicotine dependence, cigarettes, uncomplicated
CPT/HCPCS: 87081; 87426; 87491; 87591; 87661; 87804; 87880; 96372; 99213; G0463; J0696; J2003

== ENCOUNTER 2025-05-29 15:16 | Emergency (ER) | payer SELFPAY ==
--- OUTSIDE RECORDS SUMMARY | 2024-04-18 09:00 | XMS_ITS ---
Author Organization [facility] Address [address] [place] [address] Care Team Providers Care Marketing Editor Name Role Phone Graciela Garcia Primary Care Provider REASON FOR VISIT 1 Month Psych F/U & Med Refill Social History Sex Assigned At : Social History Observation Description Sex Assigned At Male Encounters Encounter Location Date Provider Diagnosis [address] [place] [address] 04/18/2024 Graciela Garcia Plan Of Treatment No Information Progress Notes * Ariane HERNANDEZsDOB: 4 (30 yo M)Acc No.[id number]:04/18/2024 UNLOCKED PROGRESS NOTE Patient: Byron AMIN Provider: Yohan Garcia DNP, APRN, PMHNP-BC :1995 A ge:29 Y S ex:Male Date:04/18/2024 Address:[facility] Subjective: * Chief Complaints: * 1 . 1 Month Psych F/U & Med Refill. * Medical History: Objective: * Vitals: Assessment: Plan: * Treatment: * * Electronic signature of Katty Wilkins , [id number] on 05/29/2025 at 04:46 PM CDT Sign off status: Pending * Provider: Yohan Garcia DNP, APRN, PMHNP-BC Date: 0 04/18/2024 Generated for Printing/Faxing/eTransmitting on: 0 05/29/2025 04:46 PM CDT
--- OUTSIDE RECORDS SUMMARY | 2024-06-20 06:20 | XMS_ITS ---
Author Organization [facility] Address [address] [place] [address] Care Team Providers Care Power Shovel Operator Helper Name Role Phone Graciela Garcia Primary Care Provider REASON FOR VISIT 1 Month Psych F/U & Med Refill Medications Medication SIG (Take, Route, Frequency, Duration) Notes Start Date End Date Status buPROPion HCl ER (XL) 300 MG 1 tablet in the morning Orally Once a day; Duration: 30 days Active Haloperidol 2 MG 1 tablet at bedtime Orally Once a day; Duration: 30 days Active Vraylar 3 MG 1 capsule Orally Onc e a day; Duration: 30 days Active Social History Sex Assigned At : Social History Observation Description Sex Assigned At Male Encounters Encounter Location Date Provider Diagnosis [address] [place] [address] 06/20/2024 Graciela Garcia Plan Of Treatment No Information Progress Notes * Cali HERNANDEZconniesDOB: 4 (30 yo M)Acc No.[id number]:06/20/2024 UNLOCKED PROGRESS NOTE Patient: Byron AMIN Provider: Yohan Garcia DNP, SWEAT BAND SEWER, PMHNP-BC :1995 A ge:29 Y S ex:Male Date:06/20/2024 [facility] [address] [id number] 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 1 Month Psych F/U & Med Refill. * Medical History: * Medications: T aking buPROPion HCl ER (XL) 300 MG Tablet Extended Release 24 Hour 1 tablet in the morning Orally Once a day , Taking Vraylar 3 MG Capsule 1 capsule Orally Once a day , Taking Haloperidol 2 MG Tablet 1 tablet at bedtime Orally Once a day Objective: * Vitals: Assessment: Plan: * Treatment: * * Electronic signature of Katty Wilkins , [id number] on 05/29/2025 at 04:46 PM CDT Sign off status: Pending * Provider: Yohan Garcia DNP, SWEAT BAND SEWER, PMHNP-BC Date: 06/20/2024 Generated for Printing/Faxing/eTransmitting on: 05/29/2025 04:46 PM CDT
--- OUTSIDE RECORDS SUMMARY | 2024-07-11 10:40 | XMS_ITS ---
Author Organization [facility] Address [address] [place] [address] Care Team Providers Care Supervisor Patching Name Role Phone Graciela Garcia Primary Care Provider Byron Gary Unavailable [phone] REASON FOR VISIT MH Social History Sex Assigned At : Social History Observation Description Sex Assigned At Male Encounters Encounter Location Date Provider Diagnosis [facility] [address] [place] [address] [place] [address] 07/11/2024 Byron Gary Plan Of Treatment No Information Progress Notes * Ariane HERNANDEZsDOB: 4 (30 yo M)Acc No.[id number]:07/11/2024 UNLOCKED PROGRESS NOTE Patient: Byron AMIN Provider: CARLOTTA Carter, AGPCNP-BC :1995 A ge:29 Y S ex:Male Date:07/11/2024 Address:[address] [place], [place] [address] Pcp:Graciela Garcia Subjective: * Chief Complaints: * 1 . MH. * Medical History: Objective: * Vitals: Assessment: Plan: * Treatment: * * Electronic signature of Cali Gary APRN, [id number] on 05/29/2025 at 04:46 PM CDT Sign off status: Pending * Provider: CARLOTTA Carter, AGPCNP-BC Date: Generated for Printing/Faxing/eTransmitting on: 0 05/29/2025 04:46 PM CDT
[2025-05-29 15:20] VITALS: BP 143/91; PULSE 97; RESP 20; TEMP 36.8; O2SAT 98
--- NOTE | 2025-05-29 15:20 | ED.URI ---
HPI - URI/Sore Throat General Chief Complaint: Upper Respiratory Infection Stated Complaint: Sore Throat Time Seen by Provider: 05/29/25 15:33 Source: patient and RN notes reviewed Mode of arrival: ambulatory Limitations: no limitations History of Present Illness HPI Narrative: 30-year-old male presents with concern for 2-3 day history of sore throat, painful swallowing, general malaise. He denies known sick contacts. He has not taken any medications for his symptoms. MD elicited complaint: sore throat Related Data Allergies Allergy/AdvReac Type Severity Reaction Status Date / Time No Known Allergies Allergy Verified 05/29/25 15:33 Review of Systems Review of Systems: CONSTITUTIONAL: Reports malaise EYES: Denies visual changes, redness, or discharge. ENT: Denies rhinorrhea, congestion, sinus pain, otalgia. Reports sore throat. CARDIOVASCULAR: Denies chest pain, palpitations, or edema. RESPIRATORY: Denies cough. Denies dyspnea. GASTROINTESTINAL: Denies abdominal pain, nausea, vomiting, diarrhea SKIN: Denies rash or itching. MUSCULOSKELETAL: Denies myalgia. NEUROLOGIC: Denies headache. All systems reviewed & are unremarkable except as noted in HPI and below PMFSH Past Medical History Medical History Schizoaffective disorder Anxiety and depression Hypertension Fractured nose [place]-Schlatter's disease Surgical History Surgical History No history of previous surgery Family History Family History Other Diabetes mellitus Social History Social History Smoking packs per day: 0.5 Smoking cigarettes per day: 10.0 Years smoked: 15 Smoking pack-years: 7.50 Smoking status: Current every day smoker Tobacco type: cigarettes Alcohol intake: current Alcohol use details: social Substance use: current Substance use type: marijuana Living arrangements: with family Gender identity (if verbalized by the patient): Male Sexual Orientation (if Verbalized by the Patient): Straight or Heterosexual Comments At time of signature, agree with nursing past medical, surgical, social and family history. There is no relevant family history pertinent to the presenting complaint Exam Narrative: GENERAL: Well-appearing, well-nourished, and in no acute distress. HEAD: Normocephalic EYES: PERRLA, conjunctivae clear ENT: Nares clear. Mucous membranes moist. TM pearly ferrara with sharp light reflex bilaterally; no tragal tenderness. Oropharynx erythematous without lesions. Tonsils enlarged with exudate, no drooling, no hoarseness, no trismus, uvula midline. NECK: Supple. No lymphadenopathy CHEST: Clear to auscultation, breath sounds equal. No wheezing, rhonchi, rales, or stridor. No respiratory distress, speaks in full sentences. HEART: Regular rate and rhythm. No murmur heard. SKIN: Warm, dry, no rash. NEURO: Alert and oriented x3. PSYCH: Normal mood and affect Course Course Emergency Course: Patient is aware of diagnosis, understands and agrees to treatment plan. Anticipatory guidance given. Patient agrees to follow-up as directed and is aware of reasons to seek care at the emergency department. Portions of this record may have been created with voice recognition software Level of Care: Express Care Visit Vital Signs Vital signs: Reviewed. MDM - URI/Sore Throat MDM Narrative Medical decision making narrative: Differential diagnosis considered: Noel virus, strep pharyngitis, allergic rhinitis, upper respiratory tract infection, sinusitis, rhinosinusitis, nasopharyngitis. viral pharyngitis, otitis media, otitis externa, pneumonia, bronchitis, viral cough syndrome, viral syndrome, and influenza. Exam findings show no acute concerns or changes; patient is non-toxic appearing and is in no distress. Patient is appropriate for outpatient treatment and follow-up. Lab Data Attestation: I reviewed the patient's lab results. Critical Care Time Critical Care Time Critical Care Time: No Discharge Plan Discharge Clinical Impression: Acute streptococcal pharyngitis Patient Disposition: Home Condition: Stable Instructions: Antibiotic Form, Strep Throat (ED) Additional Instructions: -Take the medication as prescribed. Throw away the toothbrush after 24hours of antibiotic. -Eat and drink things that are easy to swallow, like tea or soup, or popsicles to suck on. -Oral rinses such as: Salt water gargles and/or may use topical anesthetic (eg. Chloraseptic spray) or lozenges to relieve dryness or throat pain). -Take Tylenol and ibuprofen as needed for pain and fever as directed. -Frequent hand washing or hand geomorphology teacher is one of the best ways to prevent spread of infection. -Follow up with primary care provider in 2-3 days if condition is not improving; or seek ER visit if you have trouble breathing, cannot drink enough fluids, have muffled voice, difficulty opening your mouth, or severe swelling. Patient Language: Hebrew Prescriptions: New penicillin V potassium 500 mg tablet 500 mg PO Q12H 10 Days Qty: 20 0RF Follow-up/Referrals: PHYSICIAN,OTR TRUCK DRIVER [Primary Care Provider, Internal Medicine] Stand Alone Forms: Work/School Release IP Time of Disposition: 15:36
[2025-05-29 15:43] LABS: EDSTREPNEGPOS1 Positive (Negative)
--- OUTSIDE RECORDS SUMMARY | 2025-05-29 16:46 | XMS_ITS | Clinical Summary ---
Author Organization [facility] Address [address] [place] [address] Phone Care Team Providers Care Analyst Name Role Phone Génesis Pickering APRN, DIRECTOR PHYSICAL THERAPY Primary Care Provi reginald Active Problems Problem [...] Immunization (1 - 3-dose SCDM series) 2021 Influenza Immunization (#1) 2025 SARS-COV-2 Immunization ( season) 2025 Respiratory Syncytial Virus (RSV) Immunization (Adult) [...] to complete this topic Insurance Care Teams Analyst Relationship Specialty Start Date End Date Génesis Pickering, MANAGER CATEGORY, DIRECTOR PHYSICAL THERAPY PCP - General Certified Nurse Practitioner 04/14/18
--- OUTSIDE RECORDS SUMMARY | 2025-05-29 16:46 | XMS_ITS | Clinical Summary ---
Author Organization [address] Address [address] [place] [address] [place] [address] Care Team Providers Care Superintendent System Operation Name Role Phone No, Physician Primary Care Provider [phone] Allergies No known active allergies Medications albuterol [...] Bronchospasms 3 mL nebu 4 times daily (respite coordinator) 11/24/2023 Active Active Problems Problem Noted Date [...] has reduced in size following I&D at [facility] 12/15/2023. Complete antibiotics as discussed. Wound care [...] 023 Assessment & Plan (10/28/2023 11:21 AM COMMUNITY HEALTH REPRESENTATIVE): Stable, completed treatment, continues to follow with GI for monitoring and will recheck RNA for cure RLS (restless legs syndrome) 10/06/2022 Assessment & Plan (10/06/2022 11:16 AM COMMUNITY HEALTH REPRESENTATIVE): Patient reports restless legs, worse while on alprazolam Feels need to move legs, impacts daily activity Will start gabapentin 100 mg t.i.d.; will check ferritin levels today Hepatitis C antibody positive in blood Assessment & Plan (10/06/2022 11:15 AM COMMUNITY HEALTH REPRESENTATIVE): Positive hepatitis-C antibody; most recent RNA was [...] daily Assessment & Plan (09/11/2021 4:14 PM COMMUNITY HEALTH REPRESENTATIVE): Worsening, patient has continued weight gain Encouraged [...] daily Assessment & Plan (10/28/2023 11:21 AM COMMUNITY HEALTH REPRESENTATIVE): Elevated PHQ 9; discussed with patient today; patient reports multiple stressors, difficulty with finding work; currently homeless, patient has mcfp, currently living with a cousin in couch surfing with family and friends Discussed with patient prior medications, he does not want to restart any medications at this time Will continue to monitor, if no improvement then would recommend re-evaluating medications are adjusting medications Assessment & Plan (04/19/2023 4:01 PM CDT): Has been well controlled for patient Follows with [facility]; good control with current medications Continue Abilify 10 mg daily, Lexapro 20 mg daily, Vraylar 1.5 mg daily Assessment & Plan (03/09/2022 3:47 PM CDT): Stable, well controlled; continue to monitor Assessment & Plan (09/11/2021 4:13 PM COMMUNITY HEALTH REPRESENTATIVE): Stable, well controlled; mostly feels bored; patient [...] 10/27/2017 Assessment & Plan (10/28/2023 11:21 AM COMMUNITY HEALTH REPRESENTATIVE): Stable, patient reports is not currently using cigarettes, vaping Encouraged continued work towards nicotine cessation Assessment & Plan (04/19/2023 4:00 PM CDT): Vapes nicotine products Encouraged continued work on tapering concentration of vape contents Assessment & Plan (09/11/2021 4:13 PM COMMUNITY HEALTH REPRESENTATIVE): Stable, not well controlled; patient reports no [...] on file Legal Sex Male 9:28 AM COMMUNITY HEALTH REPRESENTATIVE Gender Identity Not on file Sexual Orientation [...] 11:30 AM CDT Height 172.7 cm (5' 8) 07/06/2024 11:30 AM CDT Body Mass Index 34.97 07/06/2024 11:30 AM CDT Plan of Treatment Health Maintenance Due Date Last Done Comments DTaP/Tdap/Td Vaccine (2 - Tdap) 2005 5 Varicella Vaccines (1 of 2 - 13+ 2-dose series) 2007 Regular Well Visit/Exam 18-64 01/28/2012 Pneumococcal vaccine <65 (1 of 2 - PCV) 2013 HPV Vaccines (1 - 3-dose SCD M series) 2021 Depression Screening 12/07/2024 12/08/2023, 12/08/2023, 10/05/2023, Additional history exists Influenza Vaccine (#1) 2025 Hepatitis C Screening Completed 10/18/2023 , 10/18/2023, 10/18/2023, Additional history exists Procedures Procedure Name Priority Date/Time Associated Diagnosis Comments HEPATITIS C RNA, QUANTITATIVE, PCR Routine 10/18/2023 2:16 PM COMMUNITY HEALTH REPRESENTATIVE Chronic hepatitis C without hepatic coma (HCC) from Last 3 Months or Most Recently Relevant to Health Maintenance Results * Hepatitis C (HCV) RNA PCR, quantitative Blood (10/18/2023 2:16 PM COMMUNITY HEALTH REPRESENTATIVE) HCV RNA result Not Detected MORGAN RUBYELSI MICHAEL (DILSHAD) Comment: The quantifiable range of this assay is 15 IU/mL to 100,000,000 IU/mL (1.18 log IU/mL to 8.00 log IU/mL). Testing was performed by the [employer] 6800 HCV Test ([employer] Testing performed at [facility] Current Interpretive Data was last revised on 2021 Testing performed by: [facility], [address] [facility] [place]., [address] Blood 10/18/2023 2:16 PM COMMUNITY HEALTH REPRESENTATIVE 10/18/2023 8:34 PM COMMUNITY HEALTH REPRESENTATIVE Jhoan Busby NP LAB MICROBIOLOGY - GENERAL ORDERABLES Final Result DEYANIRA MICHAEL (DILSHAD) [address] [facility] Department [place] [address] from Last 3 Months or Most Recently Relevant to Health Maintenance [place] [address] [employer] ACCESS CHOICE hulu CHOICE Member Subscriber Plan / Payer (Ef fective 2021-) Name:Byron Hernandez Relation to Subscriber:Self Name:Byron Hernandez Payer ID:[id number] (NAIC) Type:[employer] Address: [facility] [id number] [facility] Care Teams Superintendent System Operation Relationship Specialty Start Date End Date No, Physician PCP - General 07/06/24
--- OUTSIDE RECORDS SUMMARY | 2025-05-29 16:46 | XMS_ITS | Encounter Summary ---
Author Organization [facility] Healthcare Address [address] [place] [address] Care Team Providers Care Computer Operations Specialist Name Role Phone Rubin Rascon MD Primary Care Provider [phone] No, Physician Primary Care Provider [phone] Encounter Details Date Type Department Care Team (Late st Contact Info) Description 09/30/2021 Telephone [facility] [address] [place] [id number] [address], [place] Social History Tobacco Use [...] on file Legal Sex Male 9:28 AM REPRESENTATIVE PERSONAL SERVICE Gender Identity Not on file Sexual Orientation Not on file documented as of this encounter Plan of Treatment Not on file documented as of this encounter Visit Diagnoses Not on filedocumented in this encounter Additional Health Concerns Infection Onset Date Last Indicated Resolved Time COVID: Suspected 11/24/2023 11/24/2023 11/24/2023 10:02 AM REPRESENTATIVE PERSONAL SERVICE documented as of this encounter Care Teams Computer Operations Specialist Relationship Specialty Start Date End Date Rubin Rascon MD [address] [place] [address] PCP - General Family Medicine 05/04/21 07/05/24 No, Physician PCP - General 07/06/24 documented as of this encounter
--- OUTSIDE RECORDS SUMMARY | 2025-05-29 16:46 | XMS_ITS | Patient Health Record ---
Author Organization [facility] Address [address] [place] [address] Care Team Providers Care Lead Business Analyst Name Role Phone Graciela Garcia Primary Care Provider [phone] [address], Byron Unavailable [phone] Allergies No Known Allergies Reason For Referral [...] phone, visiting friends or family, going to methodist or club meetings) More than 5 times a week How stressed are you? Stress is when someone feels tense, nervous, anxious, or can\t sleep at night because their mind is troubled Somewhat In the past year have you sp ent more than 2 nights in a row in a halfway, retirement, assisted center, or juvenile correctional facility? No Do [...] W/U Status Risk Notes Problem Tobacco user (891910982) Nicotine dependence, unspecified, uncomplicated (F17.200) Active confirmed Problem Generalized anxiety disorder (58895511) Generalized anxiety disorder (F41.1) Active confirmed Problem Mood disorder (01234618) Mood disorder (F39) Active confirmed likely schizoaffective disorder Problem History of psychiatric disorder (812004432) History of posttraumatic stress disorder (PTSD) (Z86.59) Active confirmed Problem Schizoaffective disorder (36343270) Schizoaffective disorder (F25.9) Active confirmed Problem Methamphetamine abuse (237945634) Methamphetamine abuse (F15.10) Active confirmed Problem Obesity (977435883) Obesity (BMI 30-39.9) (E66.9) Active confirmed Problem Opioid use disorder (6224740264) Opioid use disorder (F11.99) Active confirmed Encounters Encounter Location Date Provider Diagnosis [address] [place] [address] 06/20/2024 Graciela Garcia Plan Of Treatment No Information Insurance Providers Payer Name Payer Address Payer Phone Subscriber Number Group Number Insured Name Patient Relationship to Insured Coverage Start Date Coverage End Date MEDICAID [address] [place] [address] [id number] Byron Hernandez Self - patient is the insured 2 [facility] [address] [place] [address] [phone] [id number] Mary Byron Self - patient is the insured [address] [address] [place] [address] [id number] Byron Hernandez Self - patient is the insured 4 Medical (General) History Medical History History ICD Code schizoaffective disorder Surgical History Surgery Date(Month/Year)
--- OUTSIDE RECORDS SUMMARY | 2025-05-29 16:46 | XMS_ITS | Clinical Summary ---
Author Organization [facility] Address [address] [place] [address] Care Team Providers Care Network Support Technician Name Role Phone None, Provider MD Primary [...] Comments Blood Pressure 146/93 09/19/2024 10:13 PM PATHOLOGICAL TECHNICIAN Pulse 82 09/19/2024 10:13 PM PATHOLOGICAL TECHNICIAN Temperature 36.9 C (98.4 F) 09/19/2024 7:59 PM PATHOLOGICAL TECHNICIAN Respiratory Rate 20 09/19/2024 10:13 PM PATHOLOGICAL TECHNICIAN Oxygen Saturation 96% 09/19/2024 10:13 PM PATHOLOGICAL TECHNICIAN Inhaled Oxygen Concentration - - Weight 116.8 kg (257 lb 8 oz) 09/19/2024 7:59 PM PATHOLOGICAL TECHNICIAN Height 177.8 cm (5' 10) 09/19/2024 7:59 PM PATHOLOGICAL TECHNICIAN Body Mass Index 36.95 09/19/2024 7:59 PM PATHOLOGICAL TECHNICIAN Plan of Treatment Health Maintenance Due Date [...] to complete this topic Insurance Care Teams Network Support Technician Relationship Specialty Start Date End Date None, Provider, PCP - General 02/23/21
--- OUTSIDE RECORDS SUMMARY | 2025-05-29 16:46 | XMS_ITS | Clinical Summary ---
Author Organization [facility] Address [address] [place] [address] Phone Care Team Providers Care Rip Saw Operator Name Role Phone Unavailable Primary Care Provider [...] Health Maintenance Due Date Last Done Comments DTAP/TDAP/TD VACCINES (2 - Tdap) 2013 06/21/19 95 HPV VACCINES (1 - 3-dose SCDM series) 2021 HEPATITIS B VACCINES (2 of 3 - 3-dose series) 01/19/2022 12/22/2021, 06/21/1995 INFLUENZA VACCINE (#1) 2025 Insurance [facility] Address: [place] [address] [address] [id number]
== END 2025-05-29 15:38 | disposition home or self-care (01) ==
PROVIDERS: Emergency Provider Nurse Practitioner
DX: J02.0 Streptococcal pharyngitis (principal); F17.210 Nicotine dependence, cigarettes, uncomplicated; I10 Essential (primary) hypertension
CPT/HCPCS: 87880; 99213; G0463